=== PATIENT | male | born 1960 | race Caucasian/White ===

== ENCOUNTER 2018-08-29 11:22 | Inpatient (IN) | payer BC, SELFPAY ==
[2018-08-29 11:49] LABS: #Basophils 0.1 thou/uL (0.0-0.2); #Eosinphils 0.2 thou/uL (0.0-0.7); #Lymphocytes 4.6 thou/uL (1.20-3.40); #Neutrophils 6.9 thou/uL (1.40-6.50); %Basophils 0.9 % (0.0-1.0); %Eosinophils 1.3 % (0.0-10.0); %Lymphocytes 35.9 % (21.0-51.0); %Monocytes 7.9 % (0.0-10.0); Hemoglobin 17.9 g/dL (14.0-18.0); Mean Corpuscular HGB CONC 32.7 g/dL (32.0-36.0); Mean Corpuscular Volume 97.9 fL (78.0-98.0); Platelet Count 213 thou/uL (130-400); RBC Distribution Width 11.6 % (11.5-14.5); White Blood Cell (WBC) Count 12.7 thou/uL (4.8-10.8)
[2018-08-29 12:14] LABS: ALT (SGPT) 350 U/L (8-55); AST (SGOT) 179 U/L (5-34); Albumin 4.5 g/dL (3.5-5.0); Alkaline Phosphatase 183 U/L (40-150); BUN (Urea Nitrogen) 28 mg/dL (8.4-25.7); Bilirubin, Total 1.2 mg/dL (0.2-1.2); Calc. Creatinine Clearance 0 mL/min (70-130); Estimated GFR-MDRD 49; Globulin 4.5 g/dL (2.4-3.5); Glucose 124 mg/dL (70-105); Lipase 243 U/L (8-78)
[2018-08-29 12:23] LABS: Anion Gap 20 mmol/L (10-20); Carbon Dioxide 38 mmol/L (22-29); Chloride 91 mmol/L (98-107); Sodium 146 mmol/L (136-145)
[2018-08-29 12:25] LABS: Calcium 13.2 mg/dL (7.8-10.44)
[2018-08-29] MEDS ORDERED: Potassium Chloride 20 MEQ TAB ONE (12:32)
[2018-08-29] MEDS ORDERED: Ondansetron PF 4 MG/2 ML Vial ONE ×2 (12:32→13:52)
[2018-08-29] MEDS ORDERED: ISOVUE-370 76%-LOCM 1 ML ONE (12:46)
[2018-08-29] MEDS ORDERED: Morphine 4 MG/ML VIAL ONE (13:51)
[2018-08-29 13:57] LABS: Bilirubin Negative (Negative); Blood, Urine Negative (Negative); Clarity CLOUDY (Clear); Glucose, Urine (Dipstick) Negative (Negative); Leukocyte Negative (Negative); Nitrite Negative (Negative); Protein, Urine (Dipstick) 100 mg/dL (Neg-Trace); Specific Gravity, Urine 1.027 (1.002-1.036); pH, Urine 7.5 (5.0-9.0)
[2018-08-29 13:59] LABS: Bacteria/HPF None Seen HPF (None Seen); Hyaline Casts/LPF 0-3 HYALINE CAST LPF (0-3 Hyaline); Pathc Cast-AUWi Flag 0.43 (0-2.49); Squamous Epithelial 0-3 HPF (0-3); WBC/HPF 0-3 HPF (0-3)
[2018-08-29 14:14] LABS: Crystals/HPF 1+ AMORPH PHOS HPF (Negative)
--- NOTE | 2018-08-29 14:30 | CT ---
CT ABDOMEN AND PELVIS WITH ONTRAST: COMPARISON: None. HISTORY: Intermittent nausea and abdominal pain for the past month. The pain is in the epigastric region. TECHNIQUE: Multiple contiguous axial images were obtained in a CT of the abdomen and pelvis with contrast. Delfina nal reformats were performed. FINDINGS: There is a hypodense mass with peripheral enhancement in the head of the pancreas measuring 3.8 cm in size. No pancreatic ductal dilatation is seen. There is enlargement of the common bile duct measur ing 15 mm without central intrahepatic biliary dilatation. There are scattered areas of hyperenhancement in the liver measuring up to 1.4 cm in size. These are seen in both the right and left lobes of the liver but are more prominent in the left lobe. These l esions are suspicious for hepatic metastases. The gallbladder is distended. The kidneys, adrenal glands, and spleen are unremarkable. The large and small bowel are unremarkable. There is an enlarged 2.6 cm lymph node in the wild hepa tis. No retroperitoneal adenopathy is seen. Atherosclerotic calcifications are seen in the aorta. The osseous structures are unremarkable. The visualized inferior thorax and abdominal wall soft tiss ues are unremarkable. IMPRESSION: 1. There is a mass in the head of the pancreas suspicious for a pancreatic malignancy. 2. There appear to be hepatic metastatic lesions in both the left and right lobes of the liver as we ll as an enlarged wild hepatis lymph node. POS: STEPAN
--- NOTE | 2018-08-29 14:58 | ULT ---
RIGHT UPPER QUADRANT ABDOMINAL ULTRASOUND: HISTORY: Right upper quadrant abdominal pain. TECHNIQUE: Multiplanar, rojas scale, and color Doppler images were obtained in a right upper quadrant abdominal u ltrasound. FINDINGS: The liver demonstrates increased echogenicity. There are hypoechoic lesions in the left lobe of the liver. These correspond to the lesions seen on CT suspicious for metastases. The gallbladder is distended and contains sludge. No shadowing stones are seen in the gallbladder. The common bile duct is enlarged measuring 1.2 cm. The pancreas could not be visualized secondary to bowel gas and enlarged stomach anterior to the panc reas. The right kidney is normal in echogenicity without hydronephrosis or calculus and measures 9.6 cm in length. IMPRESSION: 1. Fatty liver. 2. Lesions seen scattered throughout the liver more prominent in the left lobe are consistent with t he metastatic lesions seen on CT. 3. Gallbladder distention and enlargement of the common bile duct. 4. The pancreas could not be visualized secondary to bowel gas. POS: STEPAN
[2018-08-29] MEDS ORDERED: Promethazine HCl 25 MG/ML VIAL ONE (15:01)
[2018-08-29] MEDS ORDERED: Senokot S 8.6-50 MG TAB PO PRN (15:42)
[2018-08-29] MEDS ORDERED: Acetaminophen 325 MG TAB PO PRN (15:42)
[2018-08-29] MEDS ORDERED: Sodium Chloride 0.9% 1,000 ML IV SCH (15:45)
[2018-08-29 16:51] VITALS: BMI 32.5
[2018-08-29] MEDS ORDERED: hydrALAZINE 20 MG/ML VIAL SLOW IVP PRN (17:16)
[2018-08-29] MEDS ORDERED: Pantoprazole 40 MG VIAL IVP SCH (18:30)
[2018-08-29] MEDS ORDERED: Sodium Chloride 0.9% (PF) 10 ML VIAL FS SCH (18:30)
[2018-08-29] MEDS: Nicotine 14 MG PATCH TD SCH (18:32)
[2018-08-29 18:39] LABS: BUN (Urea Nitrogen) 26 mg/dL (8.4-25.7); Calc. Creatinine Clearance 79 mL/min (70-130); Calcium 11.8 mg/dL (7.8-10.44); Estimated GFR-MDRD 55; Glucose 122 mg/dL (70-105)
[2018-08-29 18:45] LABS: Carbon Dioxide Greater than 37 mmol/L (22-29); Chloride 95 mmol/L (98-107); Potassium 2.8 mmol/L (3.5-5.1); Sodium 147 mmol/L (136-145)
[2018-08-29] MEDS ORDERED: Potassium Chloride 20 MEQ TAB PO SCH (19:00)
[2018-08-29] MEDS: Ondansetron PF 4 MG/2 ML Vial IVP PRN (19:44)
[2018-08-29] MEDS: D5 1/2 NS w/40 mEq KCL 1,000 ML IV SCH (19:46)
--- NOTE | 2018-08-29 20:11 | HP ---
CHIEF COMPLAINT: Nausea and vomiting and abdominal pain. HISTORY OF PRESENT ILLNESS: The patient is a very pleasant 58-year-old male with no past medical history, who presents to the hospital with complaints of nausea, vomiting, and abdominal pain, which has been going on for the past month. The patient stated that intermittently he has been feeling nauseous and has been having emesis for the past month, also cramping abdominal pain. He also has mentioned that he has had significant amount of weight loss for about a month. The patient states that he does have an appetite, but is scared to eat because every time he eats he feels like he is going to throw up. The patient does state that his nausea and vomiting is not attributed to with food or without food. He can be nauseous any time and throw up any time. The patient denies any fevers or chills. He denies any chest pain or shortness of breath. The patient states that his normal stool habits are once a day. However, for the past 4 or 5 days, his stool has been more hard and he felt that they felt like "small rabbit pellets." The patient also states that he has been taking Pepto-Bismol and Tums in terms of Tums for the past month due to the heartburn and the nausea and emesis. The patient states that every time he tried to go to the doctor, he kind of started feeling better, so he just decided not to. PAST MEDICAL HISTORY: He denies any past medical history. PAST SURGICAL HISTORY: He denies any surgical history. SOCIAL HISTORY: The patient is a half a pack smoker a day for 20 to 30 years. Alcohol, he used to drink alcohol before; however, quit about 8 years ago. Denies any recreational drug use. FAMILY HISTORY: Mother and father both had heart disease. MEDICATIONS: He takes none. ALLERGIES: PENICILLIN. REVIEW OF SYSTEMS: All negative except for the ones mentioned above in the HPI. PHYSICAL EXAMINATION: VITAL SIGNS: As of the following; temperature is 98.8, heart rate is 100, blood pressure is 180/60, and he is 100% on room air. GENERAL: He is awake, alert, and oriented x3. Does not appear in any distress. CV: S1 and S2 present. No murmurs, rubs, or gallops. HEENT: Normocephalic and atraumatic. No lymphadenopathy noted. Pupils are equal and reactive to light. LUNGS: Clear to auscultation. No rhonchi or wheezes noted. ABDOMEN: Soft and nontender. Bowel sounds are present x2. EXTREMITIES: No edema. Pedal pulses are present x2. SKIN: He does have just a macular with erythematous based rash on his abdomen area. NEUROLOGIC: No focal deficits noted. PSYCHIATRIC: Exam normal. No abnormal affect. LABORATORY RESULTS: As of the following; WBCs of 12.7, hemoglobin of 17.9, hematocrit of 54.8, and platelets of 213. Chemistry; sodium of 146, potassium of 3.0, BUN of 20, creatinine 1.49, his calcium is 13.2, glucose is 124, AST is 179, ALT is 350, alkaline phos is 183, and lipase is 243. Urine indicates urine protein and rbc's. The patient did have a CT of abdomen and pelvis, which indicates a large hypodense mass with peripheral enhancement of the head of the pancreas and also indicated some metastatic lesions to his liver. ASSESSMENT AND PLAN: The patient is a 58-year-old male, who presents to the hospital with abdominal pain, nausea, and vomiting. 1. Abdominal pain, most likely to his new diagnosis of pancreatic mass. We will start the patient on some Zofran/Phenergan/morphine. I also given some Protonix b.i.d. Start some gentle hydration. Gastroenterology has been consulted. The patient will most likely require biopsy and then later on, we will consult Oncology. I will also add a CA-99 and a CEA for this patient. 2. Hypercalcemia. This is most likely secondary to the patient taking a significant amount of Tums versus due to his cancer, I will repeat the BNP and if his calcium is still high, I will go ahead and give him either calcitonin or a bisphosphonate. 3. Elevated LFTs. This is most likely due to his pancreatic cancer because on the CT scan, it did mention that he did have his common bile duct was enlarged about 15 mm; however, there was no intrahepatic or biliary dilation and he also has scattered hyperenhancement lesions to his liver. His gallbladder at this time was distended; however, he does not have any pain on palpation. We will just continue to monitor. 4. Acute kidney injury. Again, I will hydrate him, recheck his labs, make sure he has adequate urine output. 5. Deep venous thrombosis prophylaxis. I will hold off on the Lovenox for now, just do sequential compression devices for possible biopsy tomorrow. N.p.o. after midnight. Job ID: [id number]
[2018-08-29] MEDS: Morphine 4 MG/ML VIAL SLOW IVP PRN (20:26)
[2018-08-29] MEDS: Promethazine HCl 25 MG/ML VIAL IM/IV PRN (20:34)
--- NOTE | 2018-08-29 23:14 | CON ---
DATE OF CONSULTATION: 08/29/2018 CHIEF COMPLAINT: Abdominal pain. HISTORY OF PRESENT ILLNESS: Mr. Hazel is a 58-year-old man, who has been having epigastric aching abdominal pain on and off since mid June. Over the last week, he has been having worsening pain, nausea and vomiting. He has eaten very little in the last week and he has had constipation over the last week. He has been taking Pepto-Bismol and Tums for the epigastric discomfort without much help. He has had no blood in the stool. He started losing weight back in May. He noticed that he had to notch his belt tighter. He has had no fever. No chest pain or shortness of breath. No hematemesis. No black stools or red stools. PAST MEDICAL HISTORY: Negative. PAST SURGICAL HISTORY: Negative. FAMILY HISTORY: Negative for GI malignancy. SOCIAL HISTORY: He quit drinking 8 years ago. He drinks few beers per day for a while before that. He smokes half a pack a day, but has smoked as much as two packs per day in the past. No drugs. ALLERGIES: PENICILLIN. MEDICATIONS: Prior to admission, none. REVIEW OF SYSTEMS: Negative x10 systems reviewed except as stated in the history of present illness. PHYSICAL EXAMINATION: VITAL SIGNS: Temperature is 98.2, pulse 71, blood pressure 174/102, oxygen saturation 94% on room air. GENERAL: He is in no acute distress. He is alert and oriented x3 when aroused, but he is sleepy after having received promethazine. HEENT: His eyes have no scleral icterus. Oropharynx is clear without lesions. No cervical or supraclavicular lymphadenopathy. LUNGS: Clear to auscultation bilaterally. HEART: Regular rate and rhythm without murmur. ABDOMEN: Soft. Minimal tenderness in the epigastric region without guarding. Bowel sounds are present. EXTREMITIES: No lower extremity edema. Cranial nerves are grossly intact. LABORATORY DATA: White blood cell count 12.7, hemoglobin 17.9, platelets 213. Sodium 147, creatinine 1.33 with a BUN of 26. Calcium was 13.2 on presentation, down to 11.8 on repeat exam. Bilirubin 1.2, AST 179, ALT 350, alkaline phosphatase 183, albumin 4.5, total protein 9.0, lipase 243, CEA 9.17. IMAGING: He had a CT scan of the abdomen and pelvis that showed a 3.8 cm mass in the head of the pancreas. The common bile duct is dilated to 15 mm. There are multiple lesions in both lobes of the liver concerning for metastatic disease. Ultrasound of the gallbladder showed no obvious gallstones and again lesions noted throughout the liver. IMPRESSION: 1. Weight loss, epigastric pain, nausea and vomiting concerning with imaging. Findings concerning for pancreatic cancer metastatic to the liver. CA-19-9 is pending. CEA level is elevated. He has indicated to his that he might not be interested in pursuing biopsies or any further treatment. However, he is encouraged to discuss this with Oncology as well to have to make a full informed consent decision. Certainly, if this is the pancreatic cancer metastatic to liver, then the prognosis would not be good. 2. Hypercalcemia. 3. Elevated liver tests, likely secondary to metastatic disease. He does have dilation of the common bile duct and a mass in the head of the pancreas and could develop more significant obstruction of the common bile duct but given his normal bilirubin now, no further intervention is indicated for that. RECOMMENDATIONS: 1. Oncology consultation. 2. Await CA-19-9. 3. Depending on the patient's wishes, biopsy of the liver can be considered as a next step. Alternatively, he may desire no treatment. Job ID: [id number]
[2018-08-30 06:00] LABS: #Basophils 0.1 thou/uL (0.0-0.2); #Eosinphils 0.4 thou/uL (0.0-0.7); #Lymphocytes 4.9 thou/uL (1.20-3.40); #Monocytes 1.1 thou/uL (0.11-0.59); #Neutrophils 6.7 thou/uL (1.40-6.50); %Basophils 0.6 % (0.0-1.0); %Eosinophils 3.1 % (0.0-10.0); %Lymphocytes 36.9 % (21.0-51.0); %Monocytes 8.5 % (0.0-10.0); %Neutrophils 50.9 % (42.0-75.0); Hemoglobin 14.5 g/dL (14.0-18.0); Mean Corpuscular HGB CONC 31.3 g/dL (32.0-36.0); Mean Corpuscular Hemoglobin 31.1 pg (27.0-31.0); Mean Corpuscular Volume 99.3 fL (78.0-98.0); Mean Platelet Volume 9.8 fL (7.4-10.4); Platelet Count 176 thou/uL (130-400); RBC Distribution Width 11.6 % (11.5-14.5); Red Blood Cell (RBC) Count 4.65 mill/uL (4.70-6.10); White Blood Cell (WBC) Count 13.2 thou/uL (4.8-10.8)
[2018-08-30 06:08] LABS: Anion Gap 13 mmol/L (10-20); BUN (Urea Nitrogen) 24 mg/dL (8.4-25.7); Calc. Creatinine Clearance 76 mL/min (70-130); Calcium 10.5 mg/dL (7.8-10.44); Carbon Dioxide 30 mmol/L (22-29); Chloride 102 mmol/L (98-107); Estimated GFR-MDRD 53; Glucose 97 mg/dL (70-105); Magnesium 1.6 mg/dL (1.6-2.6); Potassium 3.5 mmol/L (3.5-5.1); Sodium 141 mmol/L (136-145)
[2018-08-30 06:42] LABS: Phosphorus 4.3 mg/dL (2.3-4.7)
[2018-08-30] MEDS: Enoxaparin Sodium 40 MG/0.4 ML SYRINGE SC SCH (07:58)
[2018-08-30] MEDS: Pantoprazole 40 MG VIAL IVP SCH ×2 (08:10→20:18)
[2018-08-30] MEDS: Sodium Chloride 0.9% (PF) 10 ML VIAL FS SCH ×3 (08:11→20:49)
[2018-08-30] MEDS: Morphine 4 MG/ML VIAL SLOW IVP PRN ×3 (11:51→20:18)
[2018-08-30] MEDS: Ondansetron PF 4 MG/2 ML Vial IVP PRN (11:52)
--- NOTE | 2018-08-30 12:14 | PRG ---
DATE OF SERVICE: 08/30/2018 SUBJECTIVE: Mr. Hazel feels better today. However, he has not had anything to eat or drink at. He is hungry and wants oral intake, but previously, he has also been hungry and then he just vomits once he starts eating. No abdominal pain this morning. OBJECTIVE: VITAL SIGNS: Temperature 97.4, pulse 62, blood pressure 136/80. GENERAL: He is in no acute distress. Alert and oriented x3. LUNGS: Clear to auscultation bilaterally. HEART: Regular rate and rhythm without murmur. ABDOMEN: Soft, nontender, nondistended. Bowel sounds are present. EXTREMITIES: No lower extremity edema. LABORATORY DATA: White blood cell count 13.2, hemoglobin 14.5 down from 17.9 yesterday, platelets 176. Creatinine is 1.39. IMPRESSION: 1. Pancreatic mass and liver mass by CT scan concerning for metastatic pancreatic cancer. The CA-19-9 is pending. CEA level is elevated at 9.17. After discussion with him, now that he is awake and alert, having not just received recent pain medicine and Phenergan, he states that he does want to pursue biopsy of the lesion for diagnosis and consider treatment options. 2. Dehydration. He was very hemoconcentrated on presentation with elevated creatinine. He also had hypercalcemia. All these things appear to be improving with IV fluids. RECOMMENDATIONS: I discussed with Radiology and they believe that they can access one of the liver lesions for biopsy. We will plan CT-guided liver biopsy most likely for tomorrow morning based on their current schedule. Job ID: [id number]
[2018-08-30 12:30] LABS: PTT 26.7 SEC (22.9-36.1); Prothrombin Time 13.5 SEC (12.0-14.7)
--- NOTE | 2018-08-30 14:50 | PDOC.PN ---
- Subjective Encounter Start Date: 08/30/18 Encounter Start Time: 10:30 Subjective: pt up in bed no complains - Objective Resuscitation Status - Order Detail: 08/29/18 15:42 Resuscitation Status Routine Resuscitation Status: FULL: Full Resuscitation Vital Signs & Weight: Vital Signs (12 hours) Temp Pulse Resp BP Pulse Ox 08/30/18 11:50 97.6 F 67 16 143/85 H 92 L 08/30/18 08:00 93 L 08/30/18 07:36 97.4 F L 62 16 136/80 93 L 08/30/18 04:17 98.2 F 65 18 146/75 H 95 Weight Admit Weight 201 lb 8.96 oz Weight 201 lb 9 oz I&O: 08/29/18 08/30/18 08/31/18 06:59 06:59 06:59 Intake Total 650 Output Total 300 Balance 350 Result Diagrams: 08/30/18 04:10 08/30/18 04:10 Phys Exam - Physical Examination Neck: no nodes, no JVD, supple, full ROM Respiratory: no wheezing, no rales, no rhonchi, wheezing present, clear to auscultation bilateral Cardiovascular: RRR, no significant murmur, no rub, gallop, irregular Musculoskeletal: no edema, pulses present, edema present Dx/Plan (1) Abdominal pain Code(s): R10.9 - UNSPECIFIED ABDOMINAL PAIN Status: Acute (2) Pancreatic mass Status: Acute (3) Hypercalcemia Code(s): E83.52 - HYPERCALCEMIA Status: Acute - Plan pt to undergo biopsy in am -: elevated cea, ca19-9 pending -: will continue pain meds -: pt updated about plan -: calcium improving with hydration * . Review of Systems - Review of Systems ENT: negative: Ear Pain, Ear Discharge, Nose Pain, Nose Discharge, Nose Congestion, Mouth Pain, Mouth Swelling, Throat Pain, Throat Swelling, Other Respiratory: negative: Cough, Dry, Shortness of Breath, Hemoptysis, SOB with Excertion, Pleuritic Pain, Sputum, Wheezing Cardiovascular: negative: chest pain, palpitations, orthopnea, paroxysmal nocturnal dyspnea, edema, light headedness, other Gastrointestinal: Nausea, Abdominal Pain Genitourinary: negative: Dysuria, Frequency, Incontinence, Hematuria, Retention , Other - Medications/Allergies Allergies/Adverse Reactions: Allergies Allergy/AdvReac Type Severity Reaction Status Date / Time Penicillins Allergy Verified 08/29/18 15:56 Medications: Current Medications Acetaminophen (Tylenol) 650 mg PO Q4H PRN PRN Reason: Headache/Fever/Mild Pain (1-3) Enoxaparin Sodium (Lovenox) 40 mg SC 0900 [facility] Last Admin: 08/30/18 07:58 Dose: Not Given Hydralazine HCl (Apresoline) 5 mg SLOW IVP Q6H PRN PRN Reason: SBP Greater Than 180 Potassium Chloride/Dextrose/Sod Cl (D5 1/2 Ns W/40 Meq Kcl) 1,000 mls @ 50 mls/ hr IV .Q20H [facility] Last Admin: 08/29/18 19:46 Dose: 1,000 mls Morphine Sulfate (Morphine) 4 mg SLOW IVP Q4H PRN PRN Reason: Mild-Moderate Pain (1-5) Last Admin: 08/30/18 11:51 Dose: 4 mg Nicotine (Nicoderm Patch) 14 mg TD Q24HR [facility] Last Admin: 08/29/18 18:32 Dose: 14 mg Ondansetron HCl (Zofran) 4 mg IVP Q6H PRN PRN Reason: Nausea/Vomiting Last Admin: 08/30/18 11:52 Dose: 4 mg Pantoprazole Sodium (Protonix) 40 mg IVP Q12HR [facility] Last Admin: 08/30/18 08:10 Dose: 40 mg Promethazine HCl (Phenergan) 12.5 mg IM/IV Q6H PRN PRN Reason: Nausea/Vomiting Last Admin: 08/29/18 20:34 Dose: 12.5 mg Senna/Docusate Sodium (Senokot S) 2 tab PO BIDPRN PRN PRN Reason: Constipation Sodium Chloride (Normal Saline Pf) 10 ml FS Q12HR [facility] Last Admin: 08/30/18 08:11 Dose: Not Given
--- NOTE | 2018-08-30 16:39 | CON ---
DATE OF CONSULTATION: REASON FOR CONSULT: Pancreatic mass. HISTORY OF PRESENT ILLNESS: Mr. Hazel is a pleasant 58-year-old gentleman, who has been having epigastric and abdominal pain since prior to . He has had a 15-pound weight loss. He has been using Pepto-Bismol and Tums for his epigastric pain. He presented to the emergency room on August 29 for evaluation. An abdominal/pelvis CT showed a hyperdense mass at the head of the pancreas measuring 3.8 cm. He had lesions in the liver worrisome for metastatic disease. The largest measuring 1.4 cm. His calcium on admission was 13.2. His liver enzymes were elevated. He was admitted for further workup. He had IV hydration with improvement in his calcium. Dr. Hunter was consulted. Initially the patient declined biopsy, but has agreed to biopsy at this time. He denies any chest pain or shortness of breath. Currently, no abdominal pain. No blood in his stool. No dysuria. No swelling of his lower extremities. PAST MEDICAL HISTORY: None. PAST SURGICAL HISTORY: None. SOCIAL HISTORY: A 30 pack-year smoker. Social drinker. No illicit drug use. FAMILY HISTORY: No history of cancer. ALLERGIES: TO PENICILLIN. HOME MEDICATIONS: None. REVIEW OF SYSTEMS: A 10-point review of systems is negative except for noted in HPI. PHYSICAL EXAMINATION: VITAL SIGNS: Temperature is 97.6, pulse is 67, respiratory rate is 16, BP is 143/85, and he is 92% on room air. GENERAL: Well-developed, well-nourished male, who has been in no acute distress. HEENT: Normocephalic and atraumatic. Pupils are equal and reactive to light. NECK: Supple. CV: Regular rate and rhythm. LUNGS: Clear. ABDOMEN: Soft. Mild tenderness to palpation in the right upper quadrant. No organomegaly. Bowel sounds are positive. EXTREMITIES: No clubbing, cyanosis, or edema. SKIN: No rash. HEMATOLOGIC: No petechiae or purpura. NEUROLOGIC: Nonfocal. PSYCH: The patient is alert, oriented, and appropriate. PERTINENT LABS AND X-RAYS: Current WBCs 13.2, hemoglobin 14.5, hematocrit 46.2 , and platelet count is 176,000. He has 51% neutrophils and 37% lymphocytes. PT is 13.5, INR is 1.0, and PTT is 26.7. Sodium is 141, potassium 3.5, chloride 102, CO2 is 30, BUN is 24, creatinine 1.39, calcium is 10.5, phosphorus 4.3, magnesium 1.6, total bilirubin is 1.2. AST is 179, ALT is 350, alkaline phosphatase is 183, serum total protein is 9, albumin 4.5, globulin 4.5, and lipase is 243. CEA is 9.17. Urine is negative. Radiology per HPI. ASSESSMENT: 1. Pancreatic mass with liver lesions, likely malignant. 2. Hypercalcemia, likely related to dehydration and malignancy. 3. Elevated LFTs. DISCUSSION: Initially, the patient had declined a biopsy, but he is now agreeable. He will have a biopsy of his liver lesion today or tomorrow. Further recommendations for chemotherapy will be based on those results. We discussed the that treatment would include chemotherapy. He is not a surgical candidate given his metastatic disease. Thank you for the consult. We will follow his hospital course. Job ID: [id number] [facility]ITALNorman
[2018-08-30] MEDS: Nicotine 14 MG PATCH TD SCH (17:43)
[2018-08-30] MEDS ORDERED: hydrALAZINE 20 MG/ML VIAL SLOW IVP PRN (19:57)
[2018-08-30] MEDS: D5 1/2 NS w/40 mEq KCL 1,000 ML IV SCH (20:00)
[2018-08-31] MEDS: Morphine 4 MG/ML VIAL SLOW IVP PRN ×4 (05:08→21:40)
[2018-08-31 06:15] LABS: #Basophils 0.1 thou/uL (0.0-0.2); #Eosinphils 0.5 thou/uL (0.0-0.7); #Lymphocytes 4.2 thou/uL (1.20-3.40); #Monocytes 0.9 thou/uL (0.11-0.59); #Neutrophils 5.6 thou/uL (1.40-6.50); %Basophils 0.8 % (0.0-1.0); %Eosinophils 4.7 % (0.0-10.0); %Lymphocytes 37.2 % (21.0-51.0); %Monocytes 7.9 % (0.0-10.0); %Neutrophils 49.4 % (42.0-75.0); Hemoglobin 15.5 g/dL (14.0-18.0); Mean Corpuscular HGB CONC 32.3 g/dL (32.0-36.0); Mean Corpuscular Hemoglobin 31.7 pg (27.0-31.0); Mean Corpuscular Volume 98.2 fL (78.0-98.0); Mean Platelet Volume 9.7 fL (7.4-10.4); Platelet Count 167 thou/uL (130-400); RBC Distribution Width 11.4 % (11.5-14.5); Red Blood Cell (RBC) Count 4.89 mill/uL (4.70-6.10); White Blood Cell (WBC) Count 11.3 thou/uL (4.8-10.8)
[2018-08-31 06:46] LABS: ALT (SGPT) 283 U/L (8-55); AST (SGOT) 142 U/L (5-34); Albumin 3.8 g/dL (3.5-5.0); Alkaline Phosphatase 143 U/L (40-150); Anion Gap 13 mmol/L (10-20); BUN (Urea Nitrogen) 19 mg/dL (8.4-25.7); Bilirubin, Total 2.6 mg/dL (0.2-1.2); Calc. Creatinine Clearance 89 mL/min (70-130); Calcium 9.6 mg/dL (7.8-10.44); Carbon Dioxide 26 mmol/L (22-29); Chloride 105 mmol/L (98-107); Estimated GFR-MDRD 64; Globulin 3.8 g/dL (2.4-3.5); Glucose 102 mg/dL (70-105); Potassium 3.7 mmol/L (3.5-5.1); Protein, Total 7.6 g/dL (6.0-8.3); Sodium 140 mmol/L (136-145)
[2018-08-31] MEDS: Pantoprazole 40 MG VIAL IVP SCH ×2 (08:43→21:42)
[2018-08-31] MEDS: Sodium Chloride 0.9% (PF) 10 ML VIAL FS SCH ×2 (08:54→21:42)
[2018-08-31] MEDS: Enoxaparin Sodium 40 MG/0.4 ML SYRINGE SC SCH (08:54)
[2018-08-31] MEDS ORDERED: Iopamidol 370 76% 100 ML VIAL ONE (09:30)
[2018-08-31] MEDS ORDERED: Midazolam HCl 2 mg/2 ml Vial ONE (10:23)
[2018-08-31] MEDS ORDERED: Fentanyl 100 MCG/2 ML VIAL ONE (10:23)
[2018-08-31] MEDS ORDERED: Sodium Bicarbonate 2.5 MEQ/5 ML VIAL ONE (10:23)
[2018-08-31] MEDS ORDERED: Sodium Chloride 0.9% 10 ML ONE (11:16)
--- NOTE | 2018-08-31 11:23 | CON ---
DATE OF CONSULTATION: REASON FOR CONSULTATION: Pancreatic and liver mass. HISTORY OF PRESENT ILLNESS: A 58-year-old male with vomiting off and on since . Please see nurse practitioner, Deirdre Martinez's note for full consult. In brief, Mr. Hazel has been having nausea and vomiting since [place] off and on that has worsened in the last week, which brought him to the ER. He also complains of right-sided abdominal pain for the last few weeks and a 15-pound weight loss over the last year. His pain does not radiate to the back or anywhere else. CT of the abdomen on admission showed a mass at the head of the pancreas and multiple lesions in the liver with hypercalcemia with a calcium level of 13.2. Since admission, the patient has been seen by Dr. Hunter in consultation and has been scheduled for a liver biopsy today. His nausea and vomiting is much improved and he has not had any episodes of emesis in two days. He still has some pain. The patient had initially declined biopsy; however, at this time has agreed to move forward, so that he may have all the information to make an informed decision on treatment. The patient has no other complaints other than constipation. PAST MEDICAL HISTORY: Tobacco abuse. PAST SURGICAL HISTORY: None. SOCIAL HISTORY: Forty pack year smoker, approximately one pack per day. Former heavy drinker, currently none or limited in the last eight years. FAMILY HISTORY: No family history of cancer. ALLERGIES: PENICILLIN. HOME MEDICATIONS: None. REVIEW OF SYSTEMS: Ten-point review of systems negative except as per HPI. PHYSICAL EXAMINATION: VITAL SIGNS: Temperature 98.2, pulse is 74, respirations 16, saturating 93% on room air, blood pressure 175/92. GENERAL APPEARANCE: The patient is well developed, in no acute distress. HEENT: Normocephalic, atraumatic. NECK: Supple. CARDIOVASCULAR: Regular rhythm and rate. LUNGS: Clear. ABDOMEN: Soft, nondistended, with mild tenderness in the right upper quadrant. EXTREMITIES: No edema. SKIN: No rash. NEUROLOGIC: Nonfocal. LABORATORY DATA: White blood cells 11.3, hemoglobin 15.5, platelets 167. Sodium 140, potassium 3.7, BUN 19, creatinine 1.18, glucose 102, total bilirubin 2.6, AST 142, ALT 283, alkaline phosphatase 143, CEA 9.17. CA 19-9 is currently pending. IMAGING DATA: CT of the abdomen and pelvis with contrast dated August 29, 2018, shows mass in the head of the pancreas and hepatic lesions in both left and right lobes of the liver, and a large wild hepatis lymph node. ASSESSMENT AND PLAN: A 58-year-old male with newly discovered pancreatic and liver masses, pending biopsy today. I have discussed potential treatments of chemotherapy with the patient and he is unsure that he will want treatment, but has agreed to move forward with biopsy today. I will order CT-Chest w/con to complete staging so we may better discuss prognosis and treatment after pathologic confirmation. We will follow up the path results and discuss the findings and potential treatments with the patient. Job ID: [id number] MTDD
--- NOTE | 2018-08-31 13:45 | ULT ---
ULTRSOUND GUIDED BIOPSY OF MULTIPLE HEPATIC MASSES: History: Hepatic mass. Liver masses. Comparison: None. FINDINGS: Successful ultrasound guided biopsy of hepatic mass. Three 18 gauge core biopsy samples were obtained . Atypical cells are present on the second sample. TECHNIQUE: Consent was obtained to perform the ultrasound guided biopsy of hepatic mases. Patient's liver was id entified. Left hepatic lobe lesion was deemed appropriate. Skin was prepped and draped in sterile fas hion. 1% Lidocaine, buffered with sodium bicarbonate used for local anesthesia. Under ultrasound guid ance, a 17 gauge metallic Trocar was advanced into the left hepatic lobe. Through the Trocar a total of three biopsies were obtained. Atypical cells are present in the second sample. Third sample was pl aced directly in formalin. There is no evidence of post biopsy hematoma. IMPRESSION: Successful ultrasound guided biopsy. Atypical cells are present on the second biopsy. POS: [facility]
--- NOTE | 2018-08-31 13:55 | CT ---
CT THORAX WITH IV CONTRAST: 08/31/2018 HISTORY: Post liver biopsy. Pancreatic cancer staging. COMPARISON: CT abdomen on 08/29/2018. No prior CT thorax is available. FINDINGS: Minimal vascular calcifications are seen in the thoracic aorta and involving the coronary arteries. There is no evidence of mediastinal, hilar, or axillary lymphadenopathy. There is atelectasis seen dependently at each lung base, greater on the right. No noncalcified pulmo nary nodule, mass, or pleural effusion is identified. There are enumerable tiny, 1 cm or less, enhancing lesions seen throughout each lobe of the visualize d liver, greater in the lateral segment of the left hepatic lobe. A few subcentimeter low density le sions with peripheral enhancement are also present. Findings are likely attributable to metastatic d isease. There is an enlarged lymph node, measuring approximately 1.5 cm, seen just superior to the l evel of the pancreatic head, with a low density area centrally, likely related to necrotic metastatic lymph node, measuring 1.5 cm in short axis dimension. Previously noted pancreatic head mass was not imaged through this exam but was seen on the CT abdomen from 08/29/2018. There is mild dilatation o f the extrahepatic common duct, with minimal dilatation of the most proximal intrahepatic ducts. Punctate foci of gas are seen anterior to the lateral segment, left hepatic lobe, likely related to r ecent biopsy of a hepatic lesion within the left hepatic lobe, which was performed just prior to this CT examination. There are no findings to suggest a hematoma, and no fluid is seen adjacent to the a nterior aspect, left hepatic lobe. No lytic or sclerotic osseous lesions are seen. Degenerative changes are noted in the thoracic spine . IMPRESSION: 1. No CT evidence of metastatic disease involving the thorax. 2. Metastatic hepatic lesions, as well as necrotic metastatic lymph node in the region of the wild hepatis. 3. Mild dilatation of the extrahepatic common duct with minimal dilatation of the proximal intrahepa tic bile ducts. 4. Punctate foci of gas anterior to the lateral segment, left hepatic lobe, likely related to recent biopsy. POS: [facility]
[2018-08-31] MEDS: Nicotine 14 MG PATCH TD SCH (17:19)
[2018-08-31] MEDS: D5 1/2 NS w/40 mEq KCL 1,000 ML IV SCH (21:38)
--- NOTE | 2018-08-31 22:10 | PRG ---
DATE OF SERVICE: 08/31/2018 SUBJECTIVE: Mr. Hazel is feeling much better and is tolerating liquid diet so far. He is being advanced to a regular diet and his nausea is resolved for now. OBJECTIVE: VITAL SIGNS: Temperature 98.0, pulse 60, blood pressure 164/82. GENERAL: He is in no acute distress. Alert and oriented x3. LUNGS: Clear to auscultation bilaterally. HEART: Regular rate and rhythm without murmur. ABDOMEN: Soft, nontender, nondistended. Bowel sounds are present. EXTREMITIES: No lower extremity edema. IMPRESSION: 1. Pancreatic mass with evidence of extensive metastatic disease to the liver. He underwent ultrasound-guided biopsy today. Those results are pending. 2. Nausea, vomiting, and abdominal pain. He has improved markedly with rehydration. He was very hemoconcentrated on presentation. His hemoglobin has come down with rehydration. 3. Acute renal failure. His creatinine is improved to 1.18. 4. Abnormal liver tests. The mass at the pancreatic head did appear to be starting to cause dilation of the common bile duct. His transaminases have improved, however, his bilirubin has increased from 1.2 to 2.6. If his bilirubin continues to rise then we might need to perform ERCP with biliary stent placement for drainage if he is to receive chemotherapy potentially. He is not a surgical candidate considering the metastatic disease. Consideration of plastic stent versus permanent metal stent pending biopsy results and oncology plan. For now, we will just continue to monitor his liver tests. 5. His CA-19-9 is greater than 1500, suggestive of pancreatic cancer origin. The CA-19-9 can just increase with biliary obstruction, however, this is much more likely secondary to pancreatic cancer. RECOMMENDATIONS: 1. Await pathology results. 2. Follow trend of the bilirubin. 3. Await oncology recommendations based on pathology findings. Again, he might ultimately end up requiring ERCP with stent placement. Job ID: [id number]
[2018-08-31] MEDS: Ondansetron PF 4 MG/2 ML Vial IVP PRN (22:46)
[2018-09-01] MEDS: Promethazine HCl 25 MG/ML VIAL IM/IV PRN ×2 (00:17→13:19)
[2018-09-01] MEDS: Morphine 4 MG/ML VIAL SLOW IVP PRN ×2 (00:44→09:52)
[2018-09-01] MEDS ORDERED: Morphine 4 MG/ML VIAL SLOW IVP SCH (00:45)
[2018-09-01 05:15] LABS: ALT (SGPT) 285 U/L (8-55); AST (SGOT) 141 U/L (5-34); Albumin 3.6 g/dL (3.5-5.0); Alkaline Phosphatase 153 U/L (40-150); Anion Gap 14 mmol/L (10-20); BUN (Urea Nitrogen) 14 mg/dL (8.4-25.7); Bilirubin, Total 2.3 mg/dL (0.2-1.2); Calc. Creatinine Clearance 109 mL/min (70-130); Calcium 9.4 mg/dL (7.8-10.44); Carbon Dioxide 25 mmol/L (22-29); Chloride 106 mmol/L (98-107); Estimated GFR-MDRD 80; Globulin 3.8 g/dL (2.4-3.5); Glucose 98 mg/dL (70-105); Protein, Total 7.4 g/dL (6.0-8.3); Sodium 141 mmol/L (136-145)
--- NOTE | 2018-09-01 07:53 | PDOC.PN ---
- Subjective Encounter Start Date: 08/31/18 - Objective Resuscitation Status - Order Detail: 08/29/18 15:42 Resuscitation Status Routine Resuscitation Status: FULL: Full Resuscitation Vital Signs & Weight: Vital Signs (12 hours) Temp Pulse Resp BP Pulse Ox 08/31/18 19:56 96 08/31/18 19:54 98.0 F 60 18 164/82 H 96 Weight Admit Weight 201 lb 8.96 oz Weight 201 lb 9 oz I&O: 08/31/18 09/01/18 09/02/18 06:59 06:59 06:59 Intake Total 1799 Balance 1799 Result Diagrams: 08/31/18 05:47 09/01/18 03:45 Dx/Plan (1) Abdominal pain Code(s): R10.9 - UNSPECIFIED ABDOMINAL PAIN Status: Acute (2) Pancreatic mass Status: Acute (3) Hypercalcemia Code(s): E83.52 - HYPERCALCEMIA Status: Acute - Plan * .
[2018-09-01] MEDS: Pantoprazole 40 MG VIAL IVP SCH ×2 (09:47→20:45)
[2018-09-01] MEDS: Enoxaparin Sodium 40 MG/0.4 ML SYRINGE SC SCH (09:47)
[2018-09-01] MEDS: Sodium Chloride 0.9% (PF) 10 ML VIAL FS SCH ×2 (09:47→20:45)
[2018-09-01] MEDS: Ondansetron PF 4 MG/2 ML Vial IVP PRN (09:52)
[2018-09-01 09:58] LABS: #Eosinphils 0.5 thou/uL (0.0-0.7); #Lymphocytes 2.7 thou/uL (1.20-3.40); #Monocytes 0.9 thou/uL (0.11-0.59); #Neutrophils 5.7 thou/uL (1.40-6.50); %Basophils 0.4 % (0.0-1.0); %Eosinophils 5.1 % (0.0-10.0); %Lymphocytes 27.2 % (21.0-51.0); %Monocytes 9.2 % (0.0-10.0); %Neutrophils 58.1 % (42.0-75.0); Hemoglobin 15.7 g/dL (14.0-18.0); Mean Corpuscular HGB CONC 32.3 g/dL (32.0-36.0); Mean Corpuscular Hemoglobin 31.6 pg (27.0-31.0); Mean Corpuscular Volume 97.9 fL (78.0-98.0); Mean Platelet Volume 9.6 fL (7.4-10.4); Platelet Count 157 thou/uL (130-400); RBC Distribution Width 11.5 % (11.5-14.5); Red Blood Cell (RBC) Count 4.96 mill/uL (4.70-6.10); White Blood Cell (WBC) Count 9.8 thou/uL (4.8-10.8)
[2018-09-01 10:17] LABS: ALT (SGPT) 310 U/L (8-55); AST (SGOT) 194 U/L (5-34); Albumin 3.6 g/dL (3.5-5.0); Alkaline Phosphatase 207 U/L (40-150); Anion Gap 12 mmol/L (10-20); BUN (Urea Nitrogen) 13 mg/dL (8.4-25.7); Calc. Creatinine Clearance 117 mL/min (70-130); Calcium 9.2 mg/dL (7.8-10.44); Carbon Dioxide 24 mmol/L (22-29); Chloride 107 mmol/L (98-107); Estimated GFR-MDRD 87; Globulin 3.7 g/dL (2.4-3.5); Glucose 112 mg/dL (70-105); Potassium 4.2 mmol/L (3.5-5.1); Protein, Total 7.3 g/dL (6.0-8.3); Sodium 139 mmol/L (136-145)
[2018-09-01] MEDS ORDERED: HYDROcodone/Acetaminophen 7.5/325 mg Tablet PO PRN (11:39)
[2018-09-01] MEDS ORDERED: Bisacodyl 10 MG SUPP PR PRN (12:14)
[2018-09-01] MEDS ORDERED: Morphine 4 MG/ML VIAL SLOW IVP PRN (12:14)
[2018-09-01] MEDS ORDERED: Bisacodyl 5 MG TAB PO SCH (12:15)
[2018-09-01] MEDS ORDERED: Polyethylene Glycol 3350 17 GM Packet PO SCH ×2 (12:15→12:30)
--- NOTE | 2018-09-01 15:37 | PDOC.PN ---
- Subjective Encounter Start Date: 09/01/18 Encounter Start Time: 11:15 Subjective: pt up in bed complains of nause and abdominal pain - Objective Resuscitation Status - Order Detail: 08/29/18 15:42 Resuscitation Status Routine Resuscitation Status: FULL: Full Resuscitation Vital Signs & Weight: Vital Signs (12 hours) Temp Pulse Resp BP Pulse Ox 09/01/18 09:20 98.2 F 65 18 143/76 H 93 L 09/01/18 08:00 93 L Weight Admit Weight 201 lb 8.96 oz Weight 201 lb 9 oz I&O: 08/31/18 09/01/18 09/02/18 06:59 06:59 06:59 Intake Total 1799 Balance 1799 Result Diagrams: 09/01/18 09:44 09/01/18 09:44 Phys Exam - Physical Examination Neck: no nodes, no JVD, supple, full ROM Respiratory: no wheezing, no rales, no rhonchi, wheezing present, clear to auscultation bilateral Cardiovascular: RRR, no significant murmur, no rub, gallop, irregular Gastrointestinal: soft mild tenderness on palpation, positive bs Dx/Plan (1) Abdominal pain Code(s): R10.9 - UNSPECIFIED ABDOMINAL PAIN Status: Acute (2) Pancreatic mass Status: Acute (3) Hypercalcemia Code(s): E83.52 - HYPERCALCEMIA Status: Acute - Plan will start pt on fentanyl patch -: will continue zofran -: ct chest negative for metastasis * . Review of Systems - Review of Systems Respiratory: negative: Cough, Dry, Shortness of Breath, Hemoptysis, SOB with Excertion, Pleuritic Pain, Sputum, Wheezing Cardiovascular: negative: chest pain, palpitations, orthopnea, paroxysmal nocturnal dyspnea, edema, light headedness, other Gastrointestinal: Nausea, Vomiting, Abdominal Pain - Medications/Allergies Allergies/Adverse Reactions: Allergies Allergy/AdvReac Type Severity Reaction Status Date / Time Penicillins Allergy Verified 08/29/18 15:56 Medications: Current Medications Acetaminophen (Tylenol) 650 mg PO Q4H PRN PRN Reason: Headache/Fever/Mild Pain (1-3) Hydrocodone Bitart/Acetaminophen ([place] 7.5/325) 2 tab PO Q4H PRN PRN Reason: Moderate Pain (4-6) Hydrocodone Bitart/Acetaminophen ([place] 7.5/325) 1 tab PO Q4H PRN PRN Reason: Mild Pain (1-3) Bisacodyl (Dulcolax) 10 mg [place] DAILYPRN PRN PRN Reason: Constipation Enoxaparin Sodium (Lovenox) 40 mg SC 0900 [facility] Last Admin: 09/01/18 09:47 Dose: 40 mg Fentanyl (Duragesic) 25 mcg TD Q3D [facility] Hydralazine HCl (Apresoline) 10 mg SLOW IVP Q6H PRN PRN Reason: SBP Greater Than 180 Potassium Chloride/Dextrose/Sod Cl (D5 1/2 Ns W/40 Meq Kcl) 1,000 mls @ 50 mls/ hr IV .Q20H [facility] Last Admin: 08/31/18 21:38 Dose: 1,000 mls Morphine Sulfate (Morphine) 4 mg SLOW IVP Q2H PRN PRN Reason: Mild-Moderate Pain (1-5) Last Admin: 09/01/18 13:18 Dose: 4 mg Nicotine (Nicoderm Patch) 14 mg TD Q24HR [facility] Last Admin: 08/31/18 17:19 Dose: 14 mg Ondansetron HCl (Zofran) 4 mg IVP Q6H PRN PRN Reason: Nausea/Vomiting Last Admin: 09/01/18 09:52 Dose: 4 mg Pantoprazole Sodium (Protonix) 40 mg IVP Q12HR [facility] Last Admin: 09/01/18 09:47 Dose: 40 mg Polyethylene Glycol (Miralax) 17 gm PO DAILY [facility] Promethazine HCl (Phenergan) 12.5 mg IM/IV Q6H PRN PRN Reason: Nausea/Vomiting Last Admin: 09/01/18 13:19 Dose: 12.5 mg Senna/Docusate Sodium (Senokot S) 2 tab PO BIDPRN PRN PRN Reason: Constipation Sodium Chloride (Normal Saline Pf) 10 ml FS Q12HR [facility] Last Admin: 09/01/18 09:47 Dose: 10 ml Sodium Chloride (Flush - Normal Saline) 10 ml IVF Q12HR [facility] Last Admin: 09/01/18 09:47 Dose: 10 ml Sodium Chloride (Flush - Normal Saline) 10 ml IVF PRN PRN PRN Reason: Saline Flush Last Admin: 08/31/18 05:10 Dose: 10 ml
[2018-09-01] MEDS: D5 1/2 NS w/40 mEq KCL 1,000 ML IV SCH (17:27)
[2018-09-01] MEDS: Nicotine 14 MG PATCH TD SCH (17:31)
[2018-09-01] MEDS ORDERED: Sodium Chloride 0.9% 1,000 ML IV SCH (18:15)
[2018-09-01] MEDS: HYDROcodone/Acetaminophen 7.5/325 mg Tablet PO PRN (20:40)
[2018-09-02 08:58] VITALS: BP 156/81; TEMP 97.8
[2018-09-02] MEDS ORDERED: Polyethylene Glycol 3350 17 GM Packet PO SCH ×2 (09:00)
[2018-09-02] MEDS: Enoxaparin Sodium 40 MG/0.4 ML SYRINGE SC SCH (09:35)
[2018-09-02] MEDS: Pantoprazole 40 MG VIAL IVP SCH (09:35)
[2018-09-02] MEDS: Sodium Chloride 0.9% (PF) 10 ML VIAL FS SCH (09:35)
[2018-09-02] MEDS: HYDROcodone/Acetaminophen 7.5/325 mg Tablet PO PRN ×2 (09:40→17:52)
[2018-09-02] MEDS: Promethazine HCl 25 MG/ML VIAL IM/IV PRN (11:15)
[2018-09-02] MEDS ORDERED: Fleet Enema 133 ML BOT FS SCH (12:30)
--- NOTE | 2018-09-02 14:44 | PDOC.PN ---
- Subjective Encounter Start Date: 09/02/18 Encounter Start Time: 10:15 Subjective: pt up in bed has not had a BM - Objective Resuscitation Status - Order Detail: 08/29/18 15:42 Resuscitation Status Routine Resuscitation Status: FULL: Full Resuscitation Vital Signs & Weight: Vital Signs (12 hours) Temp Pulse Resp BP Pulse Ox 09/02/18 08:00 97.8 F 67 18 156/81 H 95 Weight Admit Weight 201 lb 8.96 oz Weight 201 lb 9 oz I&O: 09/01/18 09/02/18 09/03/18 06:59 06:59 06:59 Intake Total 1799 600 Balance 1799 600 Result Diagrams: 09/01/18 09:44 09/01/18 09:44 Phys Exam - Physical Examination Respiratory: no wheezing, no rales, no rhonchi, wheezing present, clear to auscultation bilateral Cardiovascular: RRR, no significant murmur, no rub, gallop, irregular Gastrointestinal: soft, positive bowel sounds epigastric fullness Musculoskeletal: no edema, pulses present, edema present Neurological: non-focal, normal sensation, moves all 4 limbs Dx/Plan (1) Abdominal pain Code(s): R10.9 - UNSPECIFIED ABDOMINAL PAIN Status: Acute (2) Pancreatic mass Status: Acute (3) Hypercalcemia Code(s): E83.52 - HYPERCALCEMIA Status: Acute - Plan pt's wants pt to have a bm before he goes -: she is very concern about his symptoms worsening -: Educated her that he will have to be on scheduled meds -: to keep his symptoms undercontrol * . Review of Systems - Review of Systems Respiratory: negative: Cough, Dry, Shortness of Breath, Hemoptysis, SOB with Excertion, Pleuritic Pain, Sputum, Wheezing Gastrointestinal: Abdominal Pain Genitourinary: negative: Dysuria, Frequency, Incontinence, Hematuria, Retention , Other Musculoskeletal: negative: Neck Pain, Shoulder Pain, Arm Pain, Back Pain, Hand Pain, Leg Pain, Foot Pain, Other - Medications/Allergies Allergies/Adverse Reactions: Allergies Allergy/AdvReac Type Severity Reaction Status Date / Time Penicillins Allergy Verified 08/29/18 15:56 Medications: Current Medications Acetaminophen (Tylenol) 650 mg PO Q4H PRN PRN Reason: Headache/Fever/Mild Pain (1-3) Hydrocodone Bitart/Acetaminophen ([place] 7.5/325) 2 tab PO Q4H PRN PRN Reason: Moderate Pain (4-6) Last Admin: 09/02/18 09:40 Dose: 2 tab Hydrocodone Bitart/Acetaminophen ([place] 7.5/325) 1 tab PO Q4H PRN PRN Reason: Mild Pain (1-3) Bisacodyl (Dulcolax) 10 mg [place] DAILYPRN PRN PRN Reason: Constipation Enoxaparin Sodium (Lovenox) 40 mg SC 0900 [facility] Last Admin: 09/02/18 09:35 Dose: 40 mg Fentanyl (Duragesic) 25 mcg TD Q3D [facility] Last Admin: 09/01/18 17:32 Dose: 25 mcg Hydralazine HCl (Apresoline) 10 mg SLOW IVP Q6H PRN PRN Reason: SBP Greater Than 180 Sodium Chloride (Normal Saline 0.9%) 1,000 mls @ 50 mls/hr IV .Q20H [facility] Last Admin: 09/02/18 09:35 Dose: 1,000 mls Morphine Sulfate (Morphine) 4 mg SLOW IVP Q2H PRN PRN Reason: Mild-Moderate Pain (1-5) Last Admin: 09/01/18 13:18 Dose: 4 mg Nicotine (Nicoderm Patch) 14 mg TD Q24HR [facility] Last Admin: 09/01/18 17:31 Dose: 14 mg Ondansetron HCl (Zofran) 4 mg IVP Q6H PRN PRN Reason: Nausea/Vomiting Last Admin: 09/01/18 09:52 Dose: 4 mg Pantoprazole Sodium (Protonix) 40 mg IVP Q12HR [facility] Last Admin: 09/02/18 09:35 Dose: 40 mg Polyethylene Glycol (Miralax) 17 gm PO DAILY [facility] Last Admin: 09/02/18 09:38 Dose: 17 gm Promethazine HCl (Phenergan) 12.5 mg IM/IV Q6H PRN PRN Reason: Nausea/Vomiting Last Admin: 09/02/18 11:15 Dose: 12.5 mg Senna/Docusate Sodium (Senokot S) 2 tab PO BIDPRN PRN PRN Reason: Constipation Last Admin: 09/01/18 17:41 Dose: 2 tab Sodium Biphosphate/Sodium Phosphate (Fleet Enema) 133 ml FS NOW [facility] Stop: 09/02/18 15:00 Last Admin: 09/02/18 14:29 Dose: 133 ml Sodium Chloride (Normal Saline Pf) 10 ml FS Q12HR [facility] Last Admin: 09/02/18 09:35 Dose: 10 ml Sodium Chloride (Flush - Normal Saline) 10 ml IVF Q12HR [facility] Last Admin: 09/02/18 09:36 Dose: 10 ml Sodium Chloride (Flush - Normal Saline) 10 ml IVF PRN PRN PRN Reason: Saline Flush Last Admin: 08/31/18 05:10 Dose: 10 ml
[2018-09-02] MEDS ORDERED: Fleet Enema 133 ML BOT PR SCH (15:00)
[2018-09-02] MEDS: Ondansetron PF 4 MG/2 ML Vial IVP PRN (17:53)
[2018-09-02] MEDS: Nicotine 14 MG PATCH TD SCH (17:58)
== END 2018-09-02 20:05 | disposition home or self-care (01) | DRG 436 ==
LOC: ERS 11:22 → ONC 14:40
PROVIDERS: ADMIT Internal Medicine; ATTEND Internal Medicine
PROC: 0FB23ZX Excision of Left Lobe Liver, Percutaneous Approach, Diagnostic (ICD-10-PCS; principal; 2018-08-29)
PROC: 0FB23ZX Excision of Left Lobe Liver, Percutaneous Approach, Diagnostic (ICD-10-PCS; 2018-08-29)
PROC: 0FB23ZX Excision of Left Lobe Liver, Percutaneous Approach, Diagnostic (ICD-10-PCS; 2018-08-29)
DX: C25.9 Malignant neoplasm of pancreas, unspecified (principal); C78.7 Secondary malignant neoplasm of liver and intrahepatic bile duct; N17.9 Acute kidney failure, unspecified; E83.52 Hypercalcemia; E86.0 Dehydration; F17.200 Nicotine dependence, unspecified, uncomplicated
CPT/HCPCS: 36415; 47000; 71260; 74177; 76705; 76942; 80048; 80053; 81003; 81015; 82378; 83690; 83735; 84100; 85025; 85610; 85730; 86301; 88307; 88313; 88333; 88334; 88341; 88342; 93005; 96361; 96365; 96375; 96376; C9113; J1650; J2250; J2270; J2405; J2550; J3010; J3480; Q9966; Q9967

== ENCOUNTER 2018-09-06 14:05 | Emergency (ER) | payer SELFPAY ==
[2018-09-06 15:10] LABS: #Basophils 0.1 thou/uL (0.0-0.2); #Eosinphils 0.1 thou/uL (0.0-0.7); #Lymphocytes 3.1 thou/uL (1.20-3.40); #Monocytes 0.7 thou/uL (0.11-0.59); #Neutrophils 5.4 thou/uL (1.40-6.50); %Eosinophils 1.4 % (0.0-10.0); %Lymphocytes 32.9 % (21.0-51.0); %Monocytes 7.8 % (0.0-10.0); %Neutrophils 56.9 % (42.0-75.0); Hemoglobin 17.9 g/dL (14.0-18.0); Mean Corpuscular Hemoglobin 31.4 pg (27.0-31.0); Mean Corpuscular Volume 98.2 fL (78.0-98.0); Mean Platelet Volume 10.1 fL (7.4-10.4); Platelet Count 236 thou/uL (130-400); RBC Distribution Width 12.3 % (11.5-14.5); Red Blood Cell (RBC) Count 5.69 mill/uL (4.70-6.10); White Blood Cell (WBC) Count 9.5 thou/uL (4.8-10.8)
[2018-09-06] MEDS ORDERED: Pantoprazole 40 MG VIAL ONE (15:13)
[2018-09-06] MEDS ORDERED: Promethazine HCl 25 MG/ML VIAL ONE (15:13)
[2018-09-06] MEDS ORDERED: Ondansetron PF 4 MG/2 ML Vial ONE ×2 (15:31→16:02)
[2018-09-06 15:36] LABS: ALT (SGPT) 533 U/L (8-55); AST (SGOT) 281 U/L (5-34); Albumin 4.2 g/dL (3.5-5.0); Alkaline Phosphatase 318 U/L (40-150); BUN (Urea Nitrogen) 38 mg/dL (8.4-25.7); CK (CPK) 27 U/L (30-200); Calc. Creatinine Clearance 0 mL/min (70-130); Calcium 10.3 mg/dL (7.8-10.44); Estimated GFR-MDRD 32; Globulin 4.9 g/dL (2.4-3.5); Glucose 123 mg/dL (70-105); Lipase 144 U/L (8-78); Protein, Total 9.1 g/dL (6.0-8.3)
--- NOTE | 2018-09-06 15:41 | RAD ---
CHEST ONE VIEW: History: Nausea. Comparison: CT Chest 08-31-18 FINDINGS: Lungs are clear. No pneumothorax or effusion. Cardiac silhouette and mediastinal contours are within normal limits. IMPRESSION: No acute intrathoracic abnormality. POS: [facility]
[2018-09-06 15:46] LABS: Anion Gap 26 mmol/L (10-20); Carbon Dioxide 34 mmol/L (22-29); Chloride 85 mmol/L (98-107); Potassium 3.4 mmol/L (3.5-5.1); Sodium 142 mmol/L (136-145)
[2018-09-06 18:31] LABS: Bilirubin Moderate (Negative); Blood, Urine Negative (Negative); Clarity CLEAR (Clear); Glucose, Urine (Dipstick) Negative (Negative); Leukocyte Small (Negative); Nitrite Negative (Negative); Protein, Urine (Dipstick) 30 mg/dL (Neg-Trace); Specific Gravity, Urine 1.021 (1.002-1.036); pH, Urine 7.5 (5.0-9.0)
[2018-09-06 18:37] LABS: Bacteria/HPF None Seen HPF (None Seen); Squamous Epithelial 0-3 HPF (0-3)
[2018-09-06 18:47] LABS: Pathc Cast-AUWi Flag 3.77 (0-2.49)
[2018-09-06 18:48] LABS: Hyaline Casts/LPF NONE SEEN LPF (0-3 Hyaline); Manual Microscopic Reviewed? No Path Casts Seen; RBC/HPF 0-3 HPF (0-3)
== END 2018-09-06 19:11 | disposition home or self-care (01) ==
LOC: ERS 14:05
DX: E86.0 Dehydration (principal); F17.210 Nicotine dependence, cigarettes, uncomplicated
CPT/HCPCS: 36415; 36416; 71045; 80053; 81003; 81015; 82550; 83605; 83690; 83735; 84484; 85025; 87040; 87804; 93005; 94760; 96361; 96365; 96375; 96376; C9113; J2405; J2550

== ENCOUNTER 2018-09-10 14:04 | Inpatient (IN) | payer BC, SELFPAY ==
[2018-09-10] MEDS ORDERED: Ondansetron PF 4 MG/2 ML Vial ONE (15:03)
[2018-09-10 15:09] LABS: #Basophils 0.1 thou/uL (0.0-0.2); #Eosinphils 0.2 thou/uL (0.0-0.7); #Lymphocytes 2.9 thou/uL (1.20-3.40); #Monocytes 0.7 thou/uL (0.11-0.59); #Neutrophils 6.7 thou/uL (1.40-6.50); %Basophils 0.6 % (0.0-1.0); %Eosinophils 1.5 % (0.0-10.0); %Lymphocytes 27.7 % (21.0-51.0); %Monocytes 6.5 % (0.0-10.0); %Neutrophils 63.8 % (42.0-75.0); Hemoglobin 15.2 g/dL (14.0-18.0); Mean Corpuscular HGB CONC 32.7 g/dL (32.0-36.0); Mean Corpuscular Hemoglobin 32.3 pg (27.0-31.0); Platelet Count 190 thou/uL (130-400); RBC Distribution Width 12.1 % (11.5-14.5); White Blood Cell (WBC) Count 10.4 thou/uL (4.8-10.8)
[2018-09-10 15:33] LABS: ALT (SGPT) 301 U/L (8-55); AST (SGOT) 147 U/L (5-34); Albumin 3.7 g/dL (3.5-5.0); Alkaline Phosphatase 253 U/L (40-150); Anion Gap 16 mmol/L (10-20); BUN (Urea Nitrogen) 23 mg/dL (8.4-25.7); Bilirubin, Total 7.5 mg/dL (0.2-1.2); Calc. Creatinine Clearance 0 mL/min (70-130); Calcium 9.3 mg/dL (7.8-10.44); Carbon Dioxide 30 mmol/L (22-29); Chloride 97 mmol/L (98-107); Estimated GFR-MDRD 75; Globulin 3.5 g/dL (2.4-3.5); Glucose 96 mg/dL (70-105); Lipase 429 U/L (8-78); Potassium 3.2 mmol/L (3.5-5.1); Protein, Total 7.2 g/dL (6.0-8.3); Sodium 140 mmol/L (136-145)
--- NOTE | 2018-09-10 16:54 | HP ---
PRIMARY CARE PHYSICIAN: Dr. Luigi Phoenix. REASON FOR ADMISSION: Nausea, vomiting, dehydration. HISTORY OF PRESENT ILLNESS: A 58-year-old male, who was recently admitted in our hospital. At that time, he was diagnosed with metastatic pancreatic carcinoma. He had liver biopsy done and liver biopsy report was consistent with metastatic adenocarcinoma primary, was attributed to be due to pancreatic malignancy. He had abdomen and pelvis CT scan, which showed mass of the head of the pancreas, consistent with malignancy and he had also abdominal ultrasound, which also consistent with liver mass with metastasis. The patient has continuously poor appetite. He has vague abdominal pain. He has some weight loss. He is not tolerating food. He is feeling bloating and nausea sensation. He had one vomiting today. He was seen and evaluated at [facility]. The patient appeared dehydrated and that is why he was sent to emergency room for evaluation. The patient has intermittent abdominal pain, which he describes as dull aching, 10 x 10 in intensity. He denies any melena or hematochezia. He denies any hematemesis. He denies any fever or chills. He denies any chest pain. PAST MEDICAL HISTORY: Recent diagnosis of metastatic pancreatic carcinoma. PAST SURGICAL HISTORY: Liver biopsy. PAST PSYCHIATRIC HISTORY: Reviewed and negative. SOCIAL HISTORY: The patient has history of smoking, one pack per day. He denies any alcohol abuse. He denies any other illicit drug abuse. FAMILY HISTORY: No family history of coronary artery disease, stroke, or cancer. ALLERGIES: PENICILLIN. CURRENT HOME MEDICATIONS: The patient was recently discharged on following medications: 1. Fentanyl patch every three days. 2. [place] 7.5 one or two tablets q.4 hourly p.r.n. 3. Protonix 40 mg p.o. daily. 4. MiraLAX 17 g p.o. daily. ADDITIONAL INFORMATION: The patient is planned for [facility] next week as well as the patient has not received any specific treatment for his pancreatic carcinoma. Per family member, Oncology is planning to start chemotherapy. EMERGENCY ROOM COURSE: The patient is receiving IV fluid. REVIEW OF SYSTEMS: CONSTITUTIONAL: Negative for weight loss or gain, ability to conduct usual activities. SKIN: Negative for rash, itching. EYES: Negative for double vision, pain. ENT/MOUTH: Negative for nose bleeding, neck stiffness, pain, tenderness. CARDIOVASCULAR: Negative for palpitations, dyspnea on exertion, orthopnea. RESPIRATORY: Negative for shortness of breath, wheezing, cough, hemoptysis, fever or night sweats. GASTROINTESTINAL: Negative for poor appetite, abdominal pain, heartburn, nausea , vomiting, constipation, or diarrhea. GENITOURINARY: Negative for urgency, frequency, dysuria, nocturia. MUSCULOSKELETAL: Negative for pain, swelling. NEUROLOGIC/PSYCHIATRIC: Negative for anxiety, depression. ALLERGY/IMMUNOLOGIC: Negative for skin rash, bleeding tendency. Please see my HPI for pertinent positives and negatives. All other review of systems reviewed and negative except as mentioned in the HPI. PHYSICAL EXAMINATION: VITAL SIGNS: On arrival, blood pressure 132/87, pulse 70, respiratory rate 18, temperature 99.3, saturation 96% on room air, weight 86.1 kg. GENERAL: The patient is currently alert, awake, in no obvious acute distress. HEENT: Head; normocephalic, atraumatic. Eyes; pupils round, reactive to light. Extraocular muscle intact. ENT; oropharynx within normal limits. Dry mucous membranes. No oral lesion. No pharyngeal erythema. No exudate. NECK: Supple. No JVD. No thyromegaly. No carotid bruit. LUNGS: Clear to auscultation without any rhonchi or rales. CARDIAC: S1, S2, regular without any murmur. ABDOMEN: Soft. Abdominal discomfort noted. No peritoneal sign. No guarding. No rigidity. No rebound. BACK: Unremarkable. No CVA tenderness. EXTREMITIES: Upper extremities: Passive movement of all joints is normal. Lower extremity: No edema. Good distal pulsation. SKIN: No skin rash. HEMATOLOGICAL: No lymphadenopathy. NEUROLOGIC: Nonfocal examination. SIGNIFICANT LABORATORY DATA: CBC; WBC 10.4, hemoglobin 15.2, platelet 190. BMP ; sodium 140, potassium 3.2, chloride 97, carbon dioxide 30, BUN 23, creatinine 1.02, glucose 96, calcium 9.3. LFT; bilirubin 7.5, AST 147, ALT 301, alkaline phosphatase 253, albumin 3.7, lipase 429. IMPRESSION: 1. Obstructive jaundice. 2. Nausea and vomiting. 3. Metastatic pancreatic carcinoma. 4. Hypokalemia. 5. Volume depletion secondary to dehydration. 6. History of gastroesophageal reflux disease. 7. Abdominal pain due to pancreatic carcinoma. 8. History of tobacco abuse disorder. 9. Abnormal LFT due to metastatic pancreatic cancer. PLAN: Full admission to medical floor. Gastroenterology consultation for biliary stent placement. Hydration with dextrose with NS with 20 mEq KCl at 125 mL/ hour. Repeat labs tomorrow. Pain control with morphine p.r.n. basis. Protonix 40 mg p.o. daily, simethicone 80 mg p.c. at bedtime p.r.n. for gas pain. Reglan 10 mg IV q.6 hourly p.r.n. for nausea and vomiting. DVT prophylaxis with Lovenox 40 mg subcutaneous daily. GI prophylaxis with Protonix 40 mg p.o. daily. CODE STATUS: The patient is full code. The patient does not have any surrogate decision maker. DISPOSITION PLAN: Based on clinical course. We are expecting the patient's stay in hospital more than 2 midnights. Plan of care discussed with the patient and family member at bedside. Job ID: [id number]
[2018-09-10] MEDS ORDERED: Sodium Chloride 0.65% Nasal 44 ML BOT EA NARE PRN (17:21)
[2018-09-10] MEDS ORDERED: Cepastat Lozenges 1 LOZ PO PRN (17:21)
[2018-09-10] MEDS ORDERED: hydrALAZINE 20 MG/ML VIAL SLOW IVP PRN (17:21)
[2018-09-10] MEDS ORDERED: Acetaminophen 325 MG TAB PO PRN (17:21)
[2018-09-10] MEDS ORDERED: Artificial Tears 18 DROP/0.9 ML EA EYE PRN (17:21)
[2018-09-10] MEDS ORDERED: Calcium Carbonate 500 MG ChewTAB PO PRN (17:21)
[2018-09-10] MEDS ORDERED: Loperamide HCl 2 MG CAP PO PRN (17:21)
[2018-09-10] MEDS ORDERED: Diabetic Tussin 200 MG/10 ML UDCUP PO PRN (17:21)
[2018-09-10] MEDS ORDERED: Senokot S 8.6-50 MG TAB PO PRN (17:21)
[2018-09-10] MEDS ORDERED: Simethicone Chewable 80 MG TAB PO PRN (17:21)
[2018-09-10] MEDS ORDERED: HYDROcodone/Acetaminophen 5/325 mg Tablet PO PRN (17:21)
[2018-09-10] MEDS ORDERED: Ondansetron ODT 4 MG TAB PO PRN (17:21)
[2018-09-10] MEDS ORDERED: Loratadine 10 MG TAB PO PRN (17:21)
[2018-09-10] MEDS ORDERED: Bisacodyl 5 MG TAB PO PRN (17:21)
[2018-09-10] MEDS ORDERED: Eucerin (Mineral Oil/Petrolatum,White) 30 gm Jar TOP PRN (17:21)
[2018-09-10] MEDS ORDERED: Zolpidem Tartrate 5 MG TAB PO PRN (17:21)
[2018-09-10] MEDS ORDERED: Ondansetron PF 4 MG/2 ML Vial IVP PRN (17:21)
[2018-09-10] MEDS ORDERED: Bisacodyl 10 MG SUPP PR PRN (17:21)
[2018-09-10] MEDS ORDERED: Metoclopramide HCl 10 MG/2 ML VIAL IVP PRN (17:21)
[2018-09-10 17:30] VITALS: BMI 31.5
[2018-09-10] MEDS: D5 0.9% NS w/ 20 mEq KCl 1,000 ML IV SCH (18:47)
[2018-09-10] MEDS ORDERED: Promethazine 25 MG TAB PO PRN (20:31)
[2018-09-10] MEDS: Morphine 4 MG/ML VIAL SLOW IVP PRN (21:53)
[2018-09-11] MEDS: D5 0.9% NS w/ 20 mEq KCl 1,000 ML IV SCH ×3 (02:57→18:04)
[2018-09-11 04:47] LABS: #Basophils 0.1 thou/uL (0.0-0.2); #Eosinphils 0.3 thou/uL (0.0-0.7); #Lymphocytes 3.2 thou/uL (1.20-3.40); #Monocytes 0.8 thou/uL (0.11-0.59); #Neutrophils 4.8 thou/uL (1.40-6.50); %Basophils 0.9 % (0.0-1.0); %Eosinophils 3.8 % (0.0-10.0); %Lymphocytes 34.7 % (21.0-51.0); %Monocytes 8.3 % (0.0-10.0); %Neutrophils 52.3 % (42.0-75.0); Hemoglobin 13.5 g/dL (14.0-18.0); Mean Corpuscular HGB CONC 32.8 g/dL (32.0-36.0); Mean Corpuscular Hemoglobin 32.8 pg (27.0-31.0); Mean Corpuscular Volume 99.8 fL (78.0-98.0); Platelet Count 161 thou/uL (130-400); Red Blood Cell (RBC) Count 4.12 mill/uL (4.70-6.10); White Blood Cell (WBC) Count 9.1 thou/uL (4.8-10.8)
[2018-09-11 05:05] LABS: ALT (SGPT) 242 U/L (8-55); AST (SGOT) 132 U/L (5-34); Albumin 3.2 g/dL (3.5-5.0); Alkaline Phosphatase 219 U/L (40-150); Anion Gap 10 mmol/L (10-20); BUN (Urea Nitrogen) 19 mg/dL (8.4-25.7); Bilirubin, Total 6.1 mg/dL (0.2-1.2); Calc. Creatinine Clearance 108 mL/min (70-130); Calcium 8.8 mg/dL (7.8-10.44); Carbon Dioxide 32 mmol/L (22-29); Chloride 101 mmol/L (98-107); Estimated GFR-MDRD 82; Globulin 3.2 g/dL (2.4-3.5); Glucose 103 mg/dL (70-105); Protein, Total 6.4 g/dL (6.0-8.3); Sodium 140 mmol/L (136-145)
[2018-09-11 05:12] LABS: Potassium 2.9 mmol/L (3.5-5.1)
[2018-09-11] MEDS ORDERED: Potassium Chloride 20 MEQ in Premix Bag 1 BAG IVPB SCH (06:00)
[2018-09-11] MEDS: Potassium Chloride 20 MEQ in Premix Bag 1 BAG IVPB SCH ×4 (06:22→22:03)
[2018-09-11] MEDS: Morphine 4 MG/ML VIAL SLOW IVP PRN ×3 (06:28→20:41)
[2018-09-11 07:08] LABS: Blood, Urine Negative (Negative); Clarity CLEAR (Clear); Glucose, Urine (Dipstick) Negative (Negative); Protein, Urine (Dipstick) Negative (Neg-Trace); Specific Gravity, Urine 1.025 (1.002-1.036)
[2018-09-11 07:10] LABS: Hyaline Casts/LPF 0-3 HYALINE CAST LPF (0-3 Hyaline); Pathc Cast-AUWi Flag 0.14 (0-2.49); RBC/HPF 0-3 HPF (0-3); Squamous Epithelial None Seen HPF (0-3); WBC/HPF 0-3 HPF (0-3); Yeast-AUWi Flag 23.8 (0-25.0)
[2018-09-11 07:23] LABS: Leukocyte Negative (Negative); Nitrite Unable to Interpret (Negative)
[2018-09-11 07:24] LABS: Bilirubin Unable to Interpret (Negative); Urobilinogen UNABLE TO INTERPRET mg/dL (0.2-1.0)
[2018-09-11] MEDS ORDERED: Indomethacin 50 MG SUPP ONE (07:27)
[2018-09-11] MEDS ORDERED: Iothalamate Meglumine 60% 50 ML VIAL FS ONE (07:27)
[2018-09-11 07:35] LABS: Bacteria/HPF Rare-Few HPF (None Seen); Oval Fat Bodies/HPF None Seen HPF (None Seen); Yeast-All Forms None Seen HPF (None Seen)
[2018-09-11] MEDS ORDERED: Fentanyl 100 MCG/2 ML VIAL ONE (07:37)
[2018-09-11] MEDS: Enoxaparin Sodium 40 MG/0.4 ML SYRINGE SC SCH (10:43)
--- NOTE | 2018-09-11 11:05 | PDOC.PN ---
- Subjective Encounter Start Date: 09/11/18 Encounter Start Time: 11:03 Patient seen and examined. No new complaints. No overnight events - Objective Resuscitation Status - Order Detail: 09/10/18 15:47 Resuscitation Status Routine Resuscitation Status: FULL: Full Resuscitation MAR Reviewed: Yes Vital Signs & Weight: Vital Signs (12 hours) Temp Pulse Resp BP Pulse Ox 09/11/18 08:22 98.6 F 53 L 18 109/71 94 L 09/11/18 08:19 98.4 F 64 18 113/52 L 95 09/11/18 04:00 98.1 F 59 L 14 146/88 H 92 L 09/11/18 00:00 98.5 F 58 L 14 132/78 92 L Weight Weight 195 lb 7 oz Result Diagrams: 09/11/18 04:32 09/11/18 04:32 Phys Exam - Physical Examination Constitutional: NAD HEENT: PERRLA, moist MMs, sclera anicteric icterus+ Neck: no JVD, supple Respiratory: no wheezing, no rales, no rhonchi Cardiovascular: RRR, no significant murmur, no rub Gastrointestinal: soft, no distention, positive bowel sounds discomfort noted Musculoskeletal: no edema, pulses present Neurological: non-focal, normal sensation Lymphatic: no nodes Psychiatric: normal affect, A&O x 3 Skin: no rash, normal turgor Dx/Plan (1) Abnormal LFTs Code(s): R94.5 - ABNORMAL RESULTS OF LIVER FUNCTION STUDIES Status: Acute (2) Dehydration Code(s): E86.0 - DEHYDRATION Status: Acute (3) Hypokalemia Code(s): E87.6 - HYPOKALEMIA Status: Acute (4) Nausea & vomiting Code(s): R11.2 - NAUSEA WITH VOMITING, UNSPECIFIED Status: Acute (5) Obstructive jaundice due to malignant neoplasm Code(s): K83.1 - OBSTRUCTION OF BILE DUCT; C80.1 - MALIGNANT (PRIMARY) NEOPLASM , UNSPECIFIED Status: Acute (6) Cancer associated pain Code(s): G89.3 - NEOPLASM RELATED PAIN (ACUTE) (CHRONIC) Status: Chronic (7) GERD (gastroesophageal reflux disease) Code(s): K21.9 - GASTRO-ESOPHAGEAL REFLUX DISEASE WITHOUT ESOPHAGITIS Status: Chronic (8) Obesity (BMI 30.0-34.9) Code(s): E66.9 - OBESITY, UNSPECIFIED Status: Chronic (9) Pancreatic carcinoma metastatic to liver Code(s): C25.9 - MALIGNANT NEOPLASM OF PANCREAS, UNSPECIFIED; C78.7 - SECONDARY MALIG NEOPLASM OF LIVER AND INTRAHEPATIC BILE DUCT Status: Chronic - Plan cont current plan of care, plan discussed w/ family, continue antibiotics * continue IV cipro * today ERCP and stent placement * oncology will be consulted * palliative care will be consulted * pain control * mediport this admission? * medication reviewed as below * symptomatic treatment * discussed with bedside. Review of Systems - Review of Systems Constitutional: weakness. negative: fever, chills, sweats, malaise, other ENT: negative: Ear Pain, Ear Discharge, Nose Pain, Nose Discharge, Nose Congestion, Mouth Pain, Mouth Swelling, Throat Pain, Throat Swelling, Other Respiratory: negative: Cough, Dry, Shortness of Breath, Hemoptysis, SOB with Excertion, Pleuritic Pain, Sputum, Wheezing Cardiovascular: negative: chest pain, palpitations, orthopnea, paroxysmal nocturnal dyspnea, edema, light headedness, other Gastrointestinal: Nausea, Abdominal Pain. negative: Vomiting, Diarrhea, Constipation, Melena, Hematochezia, Other Genitourinary: negative: Dysuria, Frequency, Incontinence, Hematuria, Retention , Other Musculoskeletal: negative: Neck Pain, Shoulder Pain, Arm Pain, Back Pain, Hand Pain, Leg Pain, Foot Pain, Other Skin: negative: Rash, Lesions, Sanya, Bruising, Other - Medications/Allergies Allergies/Adverse Reactions: Allergies Allergy/AdvReac Type Severity Reaction Status Date / Time Penicillins Allergy Verified 08/29/18 15:56 Medications: Current Medications Acetaminophen (Tylenol) 650 mg PO Q4H PRN PRN Reason: Headache/Fever/Mild Pain (1-3) Hydrocodone Bitart/Acetaminophen ([place] 5/325) 1 tab PO Q4H PRN PRN Reason: Moderate Pain (4-6) Artificial Tears (Tears Naturale) 2 drop EA EYE PRN PRN PRN Reason: Dry Eyes Bisacodyl (Dulcolax) 10 mg PO DAILYPRN PRN PRN Reason: Constipation Bisacodyl (Dulcolax) 10 mg CO DAILYPRN PRN PRN Reason: Constipation Calcium Carbonate (Tums) 1,000 mg PO Q4H PRN PRN Reason: Heartburn or Indigestion Enoxaparin Sodium (Lovenox) 40 mg SC 0900 [facility] Last Admin: 09/11/18 10:43 Dose: Not Given Fentanyl (Duragesic) 25 mcg TD Q3D [facility] Last Admin: 09/10/18 21:45 Dose: 25 mcg Guaifenesin (Robitussin Sf) 200 mg PO Q4H PRN PRN Reason: Cough Hydralazine HCl (Apresoline) 10 mg SLOW IVP Q4H PRN PRN Reason: SBP > 180 and HR < 70 Potassium Chloride/Dextrose/Sod Cl (D5 0.9% Ns W/ 20 Meq Kcl) 1,000 mls @ 125 mls/hr IV .Q8H [facility] Last Admin: 09/11/18 02:57 Dose: 1,000 mls Potassium Chloride 20 meq/ (Device) 100 mls @ 50 mls/hr IVPB Q2H [facility] Stop: 09/11/18 12:15 Last Admin: 09/11/18 06:22 Dose: 100 mls Ciprofloxacin/Dextrose 400 mg/ (Device) 200 mls @ 200 mls/hr IVPB 1100,2300 [facility] Loperamide HCl (Imodium) 2 mg PO PRN PRN PRN Reason: Diarrhea/Loose Stools Loratadine (Claritin) 10 mg PO DAILYPRN PRN PRN Reason: Sinus Symptoms Mineral Oil/White Petrolatum (Eucerin Cream) 0 gm TOP BIDPRN PRN PRN Reason: Dry Skin Morphine Sulfate (Morphine) 4 mg SLOW IVP Q4H PRN PRN Reason: Pain Last Admin: 09/11/18 06:28 Dose: 4 mg Ondansetron HCl (Zofran Odt) 4 mg PO Q6H PRN PRN Reason: Nausea/Vomiting Ondansetron HCl (Zofran) 4 mg IVP Q6H PRN PRN Reason: Nausea/Vomiting Pantoprazole Sodium (Protonix) 40 mg PO 0700 [facility] Last Admin: 09/11/18 05:42 Dose: Not Given Polyethylene Glycol (Miralax) 17 gm PO DAILY [facility] Promethazine HCl (Phenergan) 25 mg PO Q6H PRN PRN Reason: Nausea/Vomiting Senna/Docusate Sodium (Senokot S) 2 tab PO BID PRN PRN Reason: Constipation Simethicone (Mylicon Chewable) 80 mg PO PCHS PRN PRN Reason: Gas Pain Sodium Chloride ([place] Nasal [place] 0.65%) 0 ml EA NARE QIDPRN PRN PRN Reason: Nasal Congestion Throat Lozenges (Cepastat Lozenges) 1 roger PO Q2H PRN PRN Reason: Sore Throat Zolpidem Tartrate (Ambien) 5 mg PO HSPRN PRN PRN Reason: Insomnia
[2018-09-11] MEDS ORDERED: Promethazine HCl 25 MG/ML VIAL SLOW IVP PRN (11:07)
[2018-09-11] MEDS ORDERED: Ondansetron HCl/PF 4 MG/2 ML Vial IVP PRN (11:07)
[2018-09-11] MEDS ORDERED: Promethazine HCl 25 MG/ML VIAL IM PRN (11:07)
[2018-09-11] MEDS: Polyethylene Glycol 3350 17 GM Packet PO SCH (12:03)
--- NOTE | 2018-09-11 12:17 | OP ---
DATE OF PROCEDURE: 09/11/2018 HYDROGRAPHER PHYSICIAN: Dr. Jefferson Hunter PROCEDURES PERFORMED: Endoscopic retrograde cholangiopancreatography with unsuccessful cannulation of common bile duct, esophagogastroduodenoscopy (diagnostic). INDICATION FOR PROCEDURE: Pancreatic adenocarcinoma with biliary obstruction, concern for gastric outlet obstruction. DESCRIPTION OF PROCEDURE: After the risks and benefits of the procedure were explained to the patient including risks of bleeding, infection, perforation, reactions to anesthesia, aspiration, pancreatitis, and/or pain, informed consent was obtained. The patient was then taken to the endoscopy suite where general anesthesia was administered via Anesthesia support with endotracheal tube intubation. Once the patient was intubated and sedated, the EGD portion of the exam was performed with introduction of the gastroscope into the esophagus, stomach, and proximal small intestine with the findings listed below. Upon completion of this portion of the procedure, the gastroscope was removed from the patient and the patient was maneuvered into the supine position. Once in the supine position, the standard duodenoscope was introduced in the mouth with intubation of the esophagus, stomach, and the proximal small intestines again with the findings listed below. The patient tolerated the procedure well with no immediate perioperative complications. Upon completion of the procedure, the patient was taken to PACU in satisfactory condition. EGD FINDINGS: Normal-appearing mucosa was seen in the proximal, mid, and distal esophagus. However, upon entry into the stomach, there was a large amount of retained solid and liquid food with irrigation and suctioning approximately 1.5 to 2 L of this retained food was suctioned out with some still remaining that was unable to be suctioned due to clogging of the scope; however, adequate visualization of the gastric fundus, body, antrum, and incisura were achieved throughout the entire stomach. There was moderately increased mucosal erythema without evidence of erosions, ulcerations, mass lesions, or active/recent bleeding. Upon entry into the antrum, there were significant swelling and edema noted to the pyloric valve that was easily traversed with the standard gastroscope, although this was most likely contributing to the gastric outlet obstruction type symptoms. There was increased patchy mucosal erythema in this region as well, but no ulceration or mucosal breakdown. Upon entry into the duodenal bulb and second portion of the duodenum , there was significant swelling and edema noted within the duodenal bulb as well as a 1.5 cm linear ulceration seen at the junction between the bulb and the second portion of the duodenum, most likely causing the swelling seen previously. The ampulla was identified easily with no further abnormalities in the second and third portion of the duodenum. ERCP FINDINGS: The standard duodenoscope was then advanced into the esophagus, stomach, and the proximal small intestines. The ampulla was easily identified within the second portion of the duodenum. After maneuvering past the swelling/edema within the duodenal bulb, there was increased friability within this region noted as well as well as with next to the ulceration seen between the junction of the bulb and the second portion. Using a 5 mm sphincterotome, multiple attempts were made at cannulation of the ampulla/common bile duct, but were ultimately unsuccessful. On two particular occasions, a guidewire was able to be advanced into the common bile duct, but was met with significant resistance approximately 3 to 4 cm into the common bile duct; however, the position was unstable and the guidewire was then apparently withdrawn despite other further attempts to replace the guidewire into the common bile duct were unsuccessful, at which point, the procedure was aborted and all equipment was removed from the patient. The patient was then taken to PACU in satisfactory condition. IMPRESSION: 1. Moderately severe mucosal erythema within the stomach indicative of gastritis. 2. A large amount of retained solid and liquid food seen within the stomach as well as increased swelling and edema seen in the pylorus/antrum consistent with a functional gastric outlet obstruction. 3. 1.5 linear ulceration seen at the junction between the duodenal bulb and second portion, most likely due to invasive tumor ingrowth creating the swelling and edema in the duodenal bulb and pylorus. 4. Unsuccessful cannulation of the ampulla with the guidewire meeting resistance at approximately 3 to 4 cm into the common bile duct, most likely due to either tumor ingrowth or extrinsic compression of the common bile duct. RECOMMENDATIONS: 1. We will place an NG tube and would continue a low intermittent wall suction for decompression of the upper GI tract. 2. Would initially place the patient on a clear liquid diet in addition to the NG tube given the presence of a functional gastric outlet obstruction. 3. Given unsuccessful attempt to place a stent today, I would recommend consultation of the palliative care team for possible placement on hospice and/or transfer to facility with specialty expertise in ERCP. 4. We will continue to monitor for signs of post ERCP pancreatitis. 5. Would continue ciprofloxacin for the next 48 to 72 hours as part of prophylaxis for infection. We will continue to follow. Please call with any questions. Job ID: [id number] MTDD
[2018-09-11] MEDS ORDERED: Dexamethasone 20 MG/5 ML VIAL ONE (13:39)
[2018-09-11] MEDS ORDERED: Glycopyrrolate 0.2 MG/ML 5 ML SYRINGE ONE ×2 (13:39)
[2018-09-11] MEDS ORDERED: Ketorolac Tromethamine 30 MG/ML VIAL ONE (13:39)
[2018-09-11] MEDS ORDERED: Rocuronium Bromide 10 MG/ML (10ML VIAL) ONE (13:39)
[2018-09-11] MEDS ORDERED: PROPOFOL 200 MG/20 ML VIAL ONE (13:39)
[2018-09-11] MEDS ORDERED: Lidocaine 1% PF 5 ML VIAL ONE (13:39)
[2018-09-11] MEDS ORDERED: Ondansetron PF 4 MG/2 ML Vial ONE (13:39)
--- NOTE | 2018-09-11 15:57 | CON ---
DATE OF CONSULTATION: 09/11/2018 HISTORY OF PRESENT ILLNESS: Mr. Hazel is a 58-year-old male with recently diagnosed metastatic pancreatic cancer, who presented back to the emergency room yesterday with complaints of continuous nausea and vomiting as well as abdominal pain and discomfort. Notably, he has a mass causing obstruction of the biliary tree and has hyperbilirubinemia. He also was thought to likely have gastric outlet obstruction on admission and an NG tube was passed, which improved his nausea and vomiting, and he has had less emesis overall. He does still complain of midepigastric pain. This morning, an ERCP was attempted, but Dr. Hunter was unable to bypass the stricture to get a stent in place. Also noted was a malignant ulcer causing a gastric outlet obstruction. Because of all this, the patient is admitted with NG tube still. GI is following, but there are limited options in terms of relieving the hyperbilirubinemia. The patient is aware of most of this and continues to complain of the pain. He is not eating anything, but he is drinking. He is complaining of pain at the NG tube site. PAST MEDICAL HISTORY: Recently diagnosed pancreatic adenocarcinoma. CURRENT MEDICATIONS: 1. Tylenol p.r.n. 2. Hooper p.r.n. 3. Dulcolax 10 mg p.o. daily p.r.n. 4. Tums p.r.n. 5. Ciprofloxacin 500 mg IV b.i.d. 6. Lovenox 40 mg subcutaneous daily. 7. Fentanyl patch 25 mcg transdermal q.3 days. 8. Robitussin p.r.n. 9. Hydralazine p.r.n. 10. Imodium p.r.n. 11. Claritin 10 mg p.o. daily p.r.n. 12. Morphine 4 mg IV q.4 hours p.r.n. 13. Zofran 4 mg IV q.6 hours p.r.n. 14. Protonix 40 mg p.o. daily. 15. MiraLAX p.r.n. 16. Phenergan 25 mg p.o. q.6 hours p.r.n. 17. Senokot-S two tablets p.o. b.i.d. p.r.n. 18. Simethicone 80 mg p.o. q.h.s. p.r.n. 19. Cepastat lozenges. 20. Streeter nasal spray. 21. Ambien 5 mg p.o. q.h.s. p.r.n. ALLERGIES: TO PENICILLIN. SOCIAL HISTORY: He is here with his daughter and [id number], who are quite supportive. He denies anything other than occasional alcohol use and currently of course, not drinking anything. FAMILY HISTORY: Negative. REVIEW OF SYSTEMS: Otherwise, 10-point review of systems is negative. Please see the history of present illness. PHYSICAL EXAMINATION: VITAL SIGNS: Temperature 98.7, pulse 51, respirations 16, O2 saturations 94% on room air, blood pressure 114/97. GENERAL: He is somewhat obese, in no acute distress. HEENT: Extraocular muscles are intact. Pupils are reactive to light. His sclerae are icteric. His NG tube has been placed without any bleeding or epistaxis around the naris. NECK: Supple without lymphadenopathy. CARDIOVASCULAR: Regular rhythm. LUNGS: Clear to auscultation bilaterally. ABDOMEN: Hypoactive bowel sounds. Soft. Minimally tender in the midepigastric area, but no rebound or guarding. EXTREMITIES: No edema. No clubbing. No cyanosis. No purpura. LABORATORY DATA: White blood cell count 9.1, hemoglobin 13.5, platelets 161. Sodium 140, potassium 2.9, chloride 101, CO2 of 32, BUN 19, creatinine 0.9, total bilirubin 6.1 down from 7.5, AST 132, ALT 242, alkaline phosphatase 219, total protein 6.4, albumin 3.2. ASSESSMENT: Mr. Hazel is a 58-year-old male with: 1. Metastatic pancreatic cancer. 2. Metastatic pancreatic adenocarcinoma with liver metastases. 3. Hyperbilirubinemia secondary to biliary obstruction or pancreatic mass. 4. 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 5. Nausea and vomiting responding to NG tube placement. PLAN: 1. I discussed the problem and the prognosis with Mr. Hazel and his daughter. They do understand that this is a very difficult problem given that the ERCP is not successful and that we were not able to relieve the obstruction. We did discuss that it might be an option to go to [place], but I think it is unlikely that this will be helpful as Dr. Hunter attempted over a 2-hour period and it is unlikely that this will be successful elsewhere. He will discuss this further with GI. 2. Ultimately, if we cannot relieve the obstruction and he has a malignant gastric outlet obstruction, chemotherapy would be difficult. He does not want chemotherapy if his quality of life will not be improved, and I think it is quite likely that his quality of life would be worse if we treated him in this state. We did discuss hospice including inpatient and outpatient hospice. He would like to discuss this with his family. We will have Palliative Care come and see the patient tomorrow and discuss these options as well. Job ID: [id number]
[2018-09-11] MEDS: Promethazine HCl 25 MG in Sodium Chloride 0.9% 50 ML IVPB PRN (22:19)
[2018-09-11] MEDS: Pantoprazole 40 MG VIAL IVP SCH (22:19)
[2018-09-12] MEDS: D5 0.9% NS w/ 20 mEq KCl 1,000 ML IV SCH ×2 (02:31→12:47)
[2018-09-12] MEDS: Morphine 4 MG/ML VIAL SLOW IVP PRN ×4 (02:31→15:58)
[2018-09-12] MEDS: Promethazine HCl 25 MG in Sodium Chloride 0.9% 50 ML IVPB PRN (03:58)
[2018-09-12] MEDS ORDERED: Sodium Chloride 0.9% (PF) 10 ML VIAL IV SCH (09:00)
--- NOTE | 2018-09-12 09:17 | PDOC.PN ---
- Subjective Encounter Start Date: 09/12/18 Encounter Start Time: 08:15 Patient seen and examined. pt has abdominal pain, he has NG tube with LIS, No overnight events - Objective Resuscitation Status - Order Detail: 09/10/18 15:47 Resuscitation Status Routine Resuscitation Status: FULL: Full Resuscitation MAR Reviewed: Yes Vital Signs & Weight: Vital Signs (12 hours) Temp Pulse Resp BP Pulse Ox 09/12/18 07:00 98.7 F 71 16 186/95 H 97 09/12/18 04:00 97.7 F 62 18 170/91 H 95 09/12/18 00:00 98.3 F 55 L 16 183/93 H 95 Weight Admit Weight 195 lb 6.4 oz Weight 195 lb 7 oz I&O: 09/11/18 09/12/18 09/13/18 06:59 06:59 06:59 Intake Total 720 Output Total 300 Balance 720 -300 Result Diagrams: 09/11/18 04:32 09/11/18 04:32 Phys Exam - Physical Examination Constitutional: NAD HEENT: PERRLA, moist MMs NG tube+ Neck: no JVD, supple Respiratory: no wheezing, no rales, no rhonchi Cardiovascular: RRR, no significant murmur, no rub Gastrointestinal: soft, no distention, positive bowel sounds abdominal tenderness noted Musculoskeletal: no edema, pulses present Neurological: non-focal, normal sensation, moves all 4 limbs Lymphatic: no nodes Psychiatric: normal affect, A&O x 3 Skin: no rash, normal turgor Dx/Plan (1) Obstructive jaundice due to malignant neoplasm Code(s): K83.1 - OBSTRUCTION OF BILE DUCT; C80.1 - MALIGNANT (PRIMARY) NEOPLASM , UNSPECIFIED Status: Acute (2) Dehydration Code(s): E86.0 - DEHYDRATION Status: Acute (3) Nausea & vomiting Code(s): R11.2 - NAUSEA WITH VOMITING, UNSPECIFIED Status: Acute (4) Pancreatic carcinoma metastatic to liver Code(s): C25.9 - MALIGNANT NEOPLASM OF PANCREAS, UNSPECIFIED; C78.7 - SECONDARY MALIG NEOPLASM OF LIVER AND INTRAHEPATIC BILE DUCT Status: Chronic (5) Abnormal LFTs Code(s): R94.5 - ABNORMAL RESULTS OF LIVER FUNCTION STUDIES Status: Acute (6) Hypokalemia Code(s): E87.6 - HYPOKALEMIA Status: Acute (7) Cancer associated pain Code(s): G89.3 - NEOPLASM RELATED PAIN (ACUTE) (CHRONIC) Status: Chronic (8) GERD (gastroesophageal reflux disease) Code(s): K21.9 - GASTRO-ESOPHAGEAL REFLUX DISEASE WITHOUT ESOPHAGITIS Status: Chronic (9) Obesity (BMI 30.0-34.9) Code(s): E66.9 - OBESITY, UNSPECIFIED Status: Chronic (10) Gastric outlet obstruction Code(s): K31.1 - ADULT HYPERTROPHIC PYLORIC STENOSIS Status: Acute (11) Gastritis and duodenitis Code(s): K29.90 - GASTRODUODENITIS, UNSPECIFIED, WITHOUT BLEEDING Status: Acute - Plan cont current plan of care, plan discussed w/ family, continue antibiotics * continue IV cipro * replace potassium * check magnesium and phosphorus * discussed with * palliative care on case * further plan will defer to GI ? transfer to [place] * repeat labs tomorrow * medication reviewed as below * symptomatic treatment. * increase morphin for breakthrough pain Review of Systems - Review of Systems Eyes: negative: Pain, Vision Change, Conjunctivae Inflammation, Eyelid Inflammation, Redness, Other ENT: negative: Ear Pain, Ear Discharge, Nose Pain, Nose Discharge, Nose Congestion, Mouth Pain, Mouth Swelling, Throat Pain, Throat Swelling, Other Respiratory: negative: Cough, Dry, Shortness of Breath, Hemoptysis, SOB with Excertion, Pleuritic Pain, Sputum, Wheezing Cardiovascular: negative: chest pain, palpitations, orthopnea, paroxysmal nocturnal dyspnea, edema, light headedness, other Gastrointestinal: Nausea, Abdominal Pain. negative: Vomiting, Diarrhea, Constipation, Melena, Hematochezia, Other Genitourinary: negative: Dysuria, Frequency, Incontinence, Hematuria, Retention , Other Musculoskeletal: negative: Neck Pain, Shoulder Pain, Arm Pain, Back Pain, Hand Pain, Leg Pain, Foot Pain, Other Skin: negative: Rash, Lesions, Sanya, Bruising, Other - Medications/Allergies Allergies/Adverse Reactions: Allergies Allergy/AdvReac Type Severity Reaction Status Date / Time Penicillins Allergy Verified 08/29/18 15:56 Medications: Current Medications Acetaminophen (Tylenol) 650 mg PO Q4H PRN PRN Reason: Headache/Fever/Mild Pain (1-3) Hydrocodone Bitart/Acetaminophen ([place] 5/325) 1 tab PO Q4H PRN PRN Reason: Moderate Pain (4-6) Artificial Tears (Tears Naturale) 2 drop EA EYE PRN PRN PRN Reason: Dry Eyes Bisacodyl (Dulcolax) 10 mg PO DAILYPRN PRN PRN Reason: Constipation Bisacodyl (Dulcolax) 10 mg IN DAILYPRN PRN PRN Reason: Constipation Calcium Carbonate (Tums) 1,000 mg PO Q4H PRN PRN Reason: Heartburn or Indigestion Enoxaparin Sodium (Lovenox) 40 mg SC 0900 [facility] Last Admin: 09/11/18 10:43 Dose: Not Given Fentanyl (Duragesic) 25 mcg TD Q3D [facility] Last Admin: 09/10/18 21:45 Dose: 25 mcg Guaifenesin (Robitussin Sf) 200 mg PO Q4H PRN PRN Reason: Cough Hydralazine HCl (Apresoline) 10 mg SLOW IVP Q4H PRN PRN Reason: SBP > 180 and HR < 70 Potassium Chloride/Dextrose/Sod Cl (D5 0.9% Ns W/ 20 Meq Kcl) 1,000 mls @ 125 mls/hr IV .Q8H [facility] Last Admin: 09/12/18 02:31 Dose: 1,000 mls Ciprofloxacin/Dextrose 400 mg/ (Device) 200 mls @ 200 mls/hr IVPB 0400,1600 [facility] Last Admin: 09/12/18 03:59 Dose: 200 mls Promethazine HCl 25 mg/ Sodium (Chloride) 51 mls @ 204 mls/hr IVPB Q6H PRN PRN Reason: Nausea Last Admin: 09/12/18 03:58 Dose: 51 mls Loperamide HCl (Imodium) 2 mg PO PRN PRN PRN Reason: Diarrhea/Loose Stools Loratadine (Claritin) 10 mg PO DAILYPRN PRN PRN Reason: Sinus Symptoms Mineral Oil/White Petrolatum (Eucerin Cream) 0 gm TOP BIDPRN PRN PRN Reason: Dry Skin Morphine Sulfate (Morphine) 4 mg SLOW IVP Q2H PRN PRN Reason: Pain Last Admin: 09/12/18 08:34 Dose: 4 mg Ondansetron HCl (Zofran Odt) 4 mg PO Q6H PRN PRN Reason: Nausea/Vomiting Ondansetron HCl (Zofran) 4 mg IVP Q6H PRN PRN Reason: Nausea/Vomiting Last Admin: 09/11/18 20:41 Dose: 4 mg Pantoprazole Sodium (Protonix) 40 mg IVP Q12HR [facility] Last Admin: 09/11/18 22:19 Dose: 40 mg Polyethylene Glycol (Miralax) 17 gm PO DAILY [facility] Last Admin: 09/11/18 12:03 Dose: Not Given Senna/Docusate Sodium (Senokot S) 2 tab PO BID PRN PRN Reason: Constipation Simethicone (Mylicon Chewable) 80 mg PO PCHS PRN PRN Reason: Gas Pain Sodium Chloride ([place] Nasal [place] 0.65%) 0 ml EA NARE QIDPRN PRN PRN Reason: Nasal Congestion Sodium Chloride (Normal Saline Pf) 10 ml IV Q12HR [facility] Sodium Chloride (Flush - Normal Saline) 10 ml IVF Q12HR [facility] Sodium Chloride (Flush - Normal Saline) 10 ml IVF PRN PRN PRN Reason: Saline Flush Throat Lozenges (Cepastat Lozenges) 1 roger PO Q2H PRN PRN Reason: Sore Throat Zolpidem Tartrate (Ambien) 5 mg PO HSPRN PRN PRN Reason: Insomnia
[2018-09-12] MEDS: Pantoprazole 40 MG VIAL IVP SCH (10:30)
[2018-09-12 10:35] LABS: Magnesium 1.7 mg/dL (1.6-2.6)
[2018-09-12] MEDS: Polyethylene Glycol 3350 17 GM Packet PO SCH (12:54)
[2018-09-12] MEDS: Enoxaparin Sodium 40 MG/0.4 ML SYRINGE SC SCH (15:36)
[2018-09-12 16:15] VITALS: BP 152/88; TEMP 98.8
[2018-09-12] MEDS ORDERED: Fleet Enema 133 ML BOT PR SCH (17:00)
--- NOTE | 2018-09-13 09:47 | CON ---
DATE OF CONSULTATION: 09/10/2018 REASON FOR CONSULTATION: History of metastatic pancreatic adenocarcinoma, possible biliary obstruction. CONSULTING PHYSICIAN: Dr. Yeni Linda. HISTORY OF PRESENT ILLNESS: The patient is a 58-year-old male with past medical history of metastatic pancreatic adenocarcinoma, presenting with increased midepigastric abdominal pain, nausea, and vomiting. The patient was recently admitted to [facility] in the beginning of 08/2018 with complaints of nausea and vomiting, and during the course of his workup, he was discovered to have a 3.8 cm lesion within the head of the pancreas as well as multiple lesions within the liver, concerning for metastatic process. He subsequently underwent liver biopsy with biopsy results consistent with metastatic pancreatic adenocarcinoma. He was discharged in the outpatient setting with a plan of placing a biliary metal stent in preparation for treatment via the oncology service; however, since this discharge, he states that he has had increasing midepigastric abdominal pain in addition to the associated nausea and vomiting. His pain is characterized as a pressure-type sensation, radiates to the periumbilical region. It is fairly constant with waxing and waning severity and will reach a severity of 10/10. This is associated with increased nausea, vomiting, increased GERD/acid reflux symptoms, dark urine, and fatigue/malaise. His pain is increased with consumption of either solid or liquid food stuffs and relieved with vomiting, where the patient vomited approximately 48-60 ounces of fluid yesterday. Currently, he denies any fevers, chills, hematemesis, hematochezia, melena, or pruritus. Of note, he also mentions that the last bowel movement he had was approximately 4 to 5 days ago and solid/hard in consistency, required significant straining in order to facilitate defecation. REVIEW OF SYSTEMS: A 10-category review of systems was obtained with all responses negative except for the pertinent positives as listed in HPI. PAST MEDICAL HISTORY: As per HPI. PAST SURGICAL HISTORY: Liver biopsy. FAMILY HISTORY: Denies any GI malignancies. SOCIAL HISTORY: Denies any alcohol or illicit drug use, although he is currently smoking approximately one pack per day. OUTPATIENT MEDICATIONS: Reviewed. ALLERGIES: PENICILLIN. PHYSICAL EXAMINATION: VITAL SIGNS: Temperature 98.7, pulse 63, blood pressure 134/83, respiratory rate 14, saturating 92% on room air. GENERAL: The patient was lying in bed, in no acute distress. Alert and oriented x4. HEENT: Neck is supple. No JVD noted, although mild scleral icterus was also seen. CARDIOVASCULAR: Regular rate and rhythm with no discernible murmurs, gallops, or rubs. RESPIRATORY: Clear to auscultation bilaterally with no discernible wheezes or rales. ABDOMEN: Hypoactive bowel sounds. Soft and nondistended. Tenderness to palpation in the midepigastric, right upper quadrant, and periumbilical regions. EXTREMITIES: No cyanosis, clubbing, or edema. LABORATORY DATA: CBC with a white blood cell count of 10.4, hemoglobin 15.2, hematocrit 46.5, and platelets 190. Chemistry with a sodium of 140, potassium 3.2, chloride 97, CO2 of 30, BUN 23, creatinine 1.02, and glucose 96. AST 147, ALT 301, alkaline phosphatase 253, total bilirubin 7.5, and lipase 429. IMAGING DATA: CT of the abdomen and pelvis was obtained on 08/29/2018 and it showed a hypodense mass within the head of the pancreas, measuring 3.8 cm in size. There was no pancreatic ductal dilatation seen; however, there was enlargement of the common bile duct measuring approximately 15 mm in size without intrahepatic biliary dilatation. Scattered areas of hyperenhancement in the liver were also seen measuring up to 1.4 cm in size seen in both the right and left lobes of the liver, more prominent in the left lobe, suspicious for hepatic metastasis. ASSESSMENT AND PLAN: The patient is a 58-year-old male with past medical history of metastatic pancreatic adenocarcinoma to the liver, presenting with abnormal imaging and symptoms concerning for an obstructive process within the gastrointestinal tract, more specifically biliary obstruction. Pancreatic adenocarcinoma/biliary obstruction: The patient is presenting with increased abdominal pain that has been present since 06/2018, but has been progressively getting worse over that same time. He was recently admitted to the hospital in 08/2018, with imaging and labs consistent with pancreatic adenocarcinoma with metastatic disease to both lobes of the liver, that was confirmed via liver biopsy. However, also seen on imaging was enlargement of the common bile duct to 15 mm in size, which is concerning for extrinsic compression of the common bile duct via the pancreatic mass. Given his increased midepigastric abdominal pain and obstructive-type symptoms including nausea and vomiting with any intake of food or liquids and relief of the pain with actual vomiting, an endoscopic intervention is indicated. RECOMMENDATIONS: 1. We would continue to trend LFTs while inpatient to determine the possible resolution after intervention. 2. We would place the patient on n.p.o. status at this time given his obstructive-type symptoms and planning for ERCP in the morning. 3. We will plan for ERCP and probable plastic stent placement within the common bile duct to facilitate flow of bile and relieve extrinsic compression from the pancreatic head mass. Plans are to ultimately place a metal stent within the common bile duct, but this will be performed at a later date. 4. Agree with aggressive antiemetic control. 5. We will place the patient on MiraLAX daily given his significant constipation, which could be an element of biliary stasis. We will continue to follow. Please call with any questions. Job ID: [id number]
--- NOTE | 2018-09-13 15:08 | DIS ---
DATE OF ADMISSION: 09/10/2018 DATE OF DISCHARGE: 09/12/2018 PRIMARY CARE PHYSICIAN: [facility] Call admission. DISCHARGE DISPOSITION: Higher level of care. PRIMARY DISCHARGE DIAGNOSES: Obstructive jaundice, gastritis and duodenitis, gastric outlet obstruction, dehydration, abnormal LFT, metastatic pancreatic carcinoma, nausea and vomiting, hypokalemia. SECONDARY DISCHARGE DIAGNOSES: Cancer associated pain, gastroesophageal reflux disease, opacity, metastatic pancreatic carcinoma. PRIMARY PROCEDURE/OPERATION: EGD with ERCP was performed by Dr. Velasquez. Biliary stent was unsuccessful, found with gastritis and duodenitis and gastric outlet obstruction. RADIOLOGICAL INVESTIGATION: None. SIGNIFICANT LABORATORY DATA: Hemoglobin 13.5, bilirubin 6.1, potassium 2.9, creatinine 0.95. LFT, abnormal. DISCHARGE MEDICATION: The patient is transferred to higher level of care in [place] for possible biliary stent placement. The patient will continue symptomatic treatment after discharge from their hospital. CONTRAINDICATION: None. CODE STATUS: Full code. INPATIENT IDENTIFICATION CLERK: Dr. Hinojosa was following while in the hospital. Dr. Ron Thompson was consulted. TEST RESULTS PENDING ON DISCHARGE: None. ALLERGIES: PENICILLIN. DISCHARGE PLAN: The patient is discharged to other hospital inpatient for biliary stent placement. HOSPITAL COURSE: A 58-year-old male who has recent diagnosis of metastatic pancreatic carcinoma. He was having increasing jaundice. He was having increasing abdominal pain along with nausea, vomiting, unable to tolerate p.o. He was dehydrated. He was sent from Oncology Clinic for hydration. Gastroenterology was consulted for possible biliary stent placement. [employer] Sander tried to do ERCP with stent placement, and after maximum effort, procedure was unsuccessful and that is why we transferred him to [place] for higher level of care. While in hospital, we hydrated him with IV fluid. We gave him a Cipro for possible infection. Abnormal electrolytes were corrected. The patient was seen and examined on the day of discharge. Please see my progress note from that day. Job ID: [id number]
== END 2018-09-12 17:39 | disposition short-term general hospital (02) | DRG 435 ==
LOC: ERS 14:04 → T4-A 15:30
PROVIDERS: ADMIT Internal Medicine; ATTEND Internal Medicine
PROC: 0DJ08ZZ Inspection of Upper Intestinal Tract, Via Natural or Artificial Opening Endoscopic (ICD-10-PCS; principal; 2018-09-11)
DX: C25.0 Malignant neoplasm of head of pancreas (principal); K83.1 Obstruction of bile duct; C78.7 Secondary malignant neoplasm of liver and intrahepatic bile duct; K31.1 Adult hypertrophic pyloric stenosis; K26.9 Duodenal ulcer, unspecified as acute or chronic, without hemorrhage or perforation; K29.70 Gastritis, unspecified, without bleeding; E86.0 Dehydration; E87.6 Hypokalemia; K21.9 Gastro-esophageal reflux disease without esophagitis; G89.3 Neoplasm related pain (acute) (chronic); E66.9 Obesity, unspecified; K59.00 Constipation, unspecified; Z87.891 Personal history of nicotine dependence; Z88.0 Allergy status to penicillin; Z68.31 Body mass index [BMI] 31.0-31.9, adult
CPT/HCPCS: 36415; 76000; 80053; 81003; 81015; 82550; 82565; 83690; 83735; 84100; 85025; 96361; 96374; C1769; C9113; J0360; J0744; J1100; J1610; J1650; J1885; J2001; J2270; J2405; J2550; J2704; J3010; J3480; J7050; Q9961